=== PATIENT | female | born 1930 | race Caucasian/White ===

== ENCOUNTER 2017-12-26 16:05 | Inpatient (IN) | payer MEDICARE, OTHER, MEDICAID ==
--- NOTE | 2017-12-26 17:12 | RAD ---
FRONTAL RADIOGRAPH CHEST PORTABLE UPRIGHT 12/26/17 COMPARISON: 04/04/17 HISTORY: Cough, pneumonia, confusion, diaphoresis. FINDINGS: Since the 04/04/17 examination, there has been development of pulmonary vascular prominence and linear increased interstitial density bilaterally. Heart and mediastinal contours are stable. No pneumothor ax is seen. No large volume pleural effusion. Small volume pleural fluid cannot be excluded. IMPRESSION: Pulmonary vascular congestion and interstitial prominence suggests possible interstitial edema. No fo marilou consolidation. Followup PA and lateral imaging of the chest following treatment advised. POS: CHINYERE
[2017-12-26 17:33] LABS: #Eosinphils 0.2 thou/uL (0.0-0.7); #Lymphocytes 3.4 thou/uL (1.20-3.40); #Monocytes 0.4 thou/uL (0.11-0.59); %Basophils 0.3 % (0.0-1.0); %Eosinophils 1.2 % (0.0-10.0); %Lymphocytes 21.2 % (21.0-51.0); %Monocytes 2.7 % (0.0-10.0); %Neutrophils 74.7 % (42.0-75.0); Hemoglobin 13.7 g/dL (12.0-16.0); Mean Corpuscular HGB CONC 31.7 g/dL (32.0-36.0); Mean Corpuscular Hemoglobin 32.2 pg (27.0-31.0); Mean Platelet Volume 7.5 fL (7.4-10.4); Platelet Count 265 thou/uL (130-400); RBC Distribution Width 13.1 % (11.5-14.5); Red Blood Cell (RBC) Count 4.25 mill/uL (4.20-5.40)
[2017-12-26 17:56] LABS: ALT (SGPT) 22 U/L (8-55); AST (SGOT) 21 U/L (5-34); Alkaline Phosphatase 87 U/L (40-150); Anion Gap 19 mmol/L (10-20); BUN (Urea Nitrogen) 26 mg/dL (9.8-20.1); Bilirubin, Total 0.3 mg/dL (0.2-1.2); CK (CPK) 156 U/L (29-168); Calc. Creatinine Clearance 0 mL/min (70-130); Calcium 8.5 mg/dL (7.8-10.44); Carbon Dioxide 19 mmol/L (23-31); Chloride 102 mmol/L (98-107); Estimated GFR-MDRD 49; Globulin 4.3 g/dL (2.4-3.5); Glucose 267 mg/dL (83-110); Lipase 30 U/L (8-78); Potassium 4.7 mmol/L (3.5-5.1); Protein, Total 7.3 g/dL (6.0-8.3); Sodium 135 mmol/L (136-145)
[2017-12-26 18:03] LABS: CKMB 5.5 ng/mL (0-6.6); Troponin I 0.022 ng/mL (< 0.028)
[2017-12-26] MEDS ORDERED: Piperacillin/Tazobactam 4.5 GM in Sodium Chloride 0.9% 100 ML IVPB SCH (19:15)
[2017-12-26] MEDS ORDERED: Vancomycin HCl 1.5 GM in Sodium Chloride 0.9% 250 ML 300 ML IVPB SCH (19:15)
[2017-12-26 23:00] VITALS: BMI 31.0
[2017-12-27] MEDS ORDERED: Bisacodyl 5 MG TAB PO PRN (00:35)
[2017-12-27] MEDS ORDERED: Ondansetron HCl/PF 4 MG/2 ML Vial IVP PRN (00:35)
[2017-12-27] MEDS ORDERED: Acetaminophen 325 MG TAB PO PRN ×2 (00:39→00:59)
[2017-12-27] MEDS ORDERED: Nitroglycerin 0.4 MG TAB (25 Tab Bottle) SL SCH (00:45)
[2017-12-27] MEDS ORDERED: INSULIN GLARGINE SC SCH (00:45)
--- NOTE | 2017-12-27 00:54 | PDOC.EVN ---
Event Note - Event Note Event Note: H&P dictation [id number]
[2017-12-27] MEDS: Sodium Chloride 0.9% 1,000 ML IV SCH ×2 (01:27→15:22)
[2017-12-27] MEDS ORDERED: guaiFENesin 200 MG TAB PO SCH (01:30)
[2017-12-27 01:36] LABS: Troponin I 0.033 ng/mL (< 0.028)
--- NOTE | 2017-12-27 04:26 | HP ---
PRIMARY CARE PHYSICIAN: Stanley Carrasco M.D. CHIEF COMPLAINT: Cough with fever and altered mental status at the patient's home facility. HISTORY OF PRESENT ILLNESS: An 87-year-old female with a known history of dementia who presented with a chief complaint of cough, fever, and altered mental status and was sent in by her residential nursing facility. At the time of my evaluation, the patient is unfortunately a very poor historian that oriented only to self. She has no new complaints. Denies any active cough, shortness of breath, chest pain, dyspnea with exertion, or difficulty breathing. There is unfortunately no family or caregivers available to describe how far off baseline mentation the patient is currently. Per ER documentation, it appears that the patient also had some initial hypoxia in the emergency department which is currently resolved at the time of my evaluation. She was also noted to have new-onset atrial fibrillation with RVR at that point in time as well. REVIEW OF SYSTEMS: As per HPI. Constitutional: Patient is a poor historian as noted above, so the answers to this review of systems may not necessarily be accurate. Constitutional: No significant weight change, no fevers, no chills. HEENT: No any headaches, lightheadedness or dizziness. Cardiovascular: No chest pain or chest pressure. No sensation of palpitations or left-sided numbness or tingling. Respiratory: No difficulty breathing, no cough, no issues with congestion. Gastrointestinal: Denies any nausea, vomiting, abdominal pain. Denies any diarrhea or constipation. Genitourinary: Denies any dysuria. Musculoskeletal: Denies any myalgias or arthralgias. Remainder of review of systems, otherwise negative, but please note limitations to the accuracy of this review of systems as described above. PAST MEDICAL HISTORY: As per HPI includes the following as derived from patient 's current medical record, as the patient herself is unable to provide any medical history. 1. Type 2 diabetes. 2. Degenerative joint disease. 3. Alzheimer dementia. 4. Osteoporosis. 5. Coronary artery disease. 6. Hyperlipidemia. 7. Gastroesophageal reflux disease. 8. Morbid obesity. 9. Status post cholecystectomy. 10. Status post hernia repair. 11. Status post hysterectomy. HOME MEDICATIONS: Per the patient EMR list. The patient appears to be taking the following: Memantine 10 mg p.o. daily; Levaquin 500 mg p.o. daily; levothyroxine 25 mcg p.o. daily; ipratropium and albuterol 2 to 3 mL nebs q.i.d. ; magnesium hydroxide, aluminum hydroxide, simethicone 5 mg p.o. daily; insulin lispro sliding scale; econazole nitrate 1 application topical daily; acetaminophen 650 mg p.o. q.4 hours p.r.n.; prednisone 10 mg p.o. daily; simvastatin 10 mg p.o. at bedtime; Detrol 4 mg sublingual q.8 hours p.r.n.; Nitrostat 0.4 mg sublingual every 5 minutes p.r.n.; loperamide 2 mg p.o. as directed p.r.n.; donepezil 10 mg p.o. at bedtime; duloxetine 90 mg p.o. daily; methotrexate sodium 5 mg p.o. every 7 days; ascorbic acid 500 mg p.o. b.i.d.; multivitamin 1 tab each p.o. daily; ferrous sulfate 325 mg p.o. daily; aspirin 81 mg p.o. daily; potassium chloride 20 mEq p.o. daily; 100 mg p.o. b.i.d. ; cholecalciferol 6000 units p.o. daily; polyethylene glycol 3350 of 17 grams p.o. daily; furosemide 60 mg p.o. daily; vitamin A, C, zinc, sodium, selenate, copper 1 tab p.o. daily; insulin glargine or Lantus 65 units at bedtime and 70 units q.a.m.; guaifenesin 400 mg p.o. q.6 hours. ALLERGIES: CEPHALEXIN, unknown reaction; METFORMIN, unknown reaction. FAMILY HISTORY: Patient is unable to provide family history, but from prior records, it does not appear to have a family history of coronary artery disease , stroke, cancer, or recurrent pneumonia. SOCIAL HISTORY: Patient is a prison resident. Patient has longstanding DNR paperwork, which has been confirmed for the patient, as she is unable to make her own medical decisions at this point in time. PHYSICAL EXAMINATION: GENERAL: The patient is awake, conversant, oriented only to self. No acute distress, lying in the hospital bed. HEENT: Normocephalic, atraumatic. Equal ocular motions are intact. No posterior oropharyngeal erythema or exudate. CARDIOVASCULAR: S1, S2. No murmurs, rubs, or gallops. Pulses 2+ bilateral upper extremities, no pitting pedal edema. RESPIRATORY: Limited anterior examination. Reasonable air movement. No dyspnea with conversation. No wheezes, rales, or rhonchi, otherwise clear to auscultation bilaterally. ABDOMEN: Positive bowel sounds, obese, soft, nontender to palpation. MUSCULOSKELETAL: Able to move all 4 extremities independently. LABORATORY DATA AND IMAGING: WBC 16.3, hemoglobin 13.7, hematocrit 43.1, platelets 265. Sodium 135, potassium 4.7, chloride 102, bicarb 19, BUN 26, creatinine 1.06, glucose 267. Lactic acid 1.6, calcium 8.5, total bilirubin 0.3 , AST 21, ALT 22, alkaline phosphatase 87. Creatine kinase 156, troponin 0.022. BNP natriuretic peptide 110.6, albumin 3.0, total protein 7.3, lipase is 30. On 12/26/2017, chest x-ray impression "pulmonary vascular congestion and interstitial prominence suggest possible interstitial edema. No focal consolidation. Follow up PA and lateral imaging of the chest following treatment advised." ASSESSMENT AND PLAN: An 87-year-old female with dementia who was initially brought in for chief complaint of fever, cough, and altered mental status. 1. Patient appears to have been treated on an outpatient basis with a Z-CHLOE. She has been placed on Levaquin in the emergency department and has no active issues with cough or fever at this point in time, we will continue with this regimen for concern of possible atypical pneumonia, given the patient's leukocytosis as well and no other evidence of focality for infection. Check urine Streptococcal antigen and Legionella antigen. A sputum culture if possible. 2. Atrial fibrillation. Patient is currently self-rate controlled. We will closely continue to monitor on telemetry. Patient is unfortunately currently a high fall risk. She has already been taking aspirin on an outpatient basis, could consider further anticoagulation if the patient's fall risk improves, we will consult physical therapy. Echocardiogram and check a TSH. 3. History of coronary artery disease, currently appears to be stable. Monitor the patient on telemetry. 4. Leukocytosis, suspect secondary to potential infection as noted above. I have repeat CBC in the morning. Empiric antibiotics as above. 5. Hypothyroidism. Continue patient on her Synthroid. TSH as noted above. 6. Insulin-dependent diabetes. Continue the patient on her home regimen. Patient will need a diabetic diet. DIET: Diabetic as tolerated. ACTIVITY: Physical therapy consultation out of bed as tolerated. Deep venous thrombosis prophylaxis: Enoxaparin. Admit to telemetry. DNR. CHEMA
[2017-12-27 05:18] LABS: #Basophils 0.1 thou/uL (0.0-0.2); #Eosinphils 0.5 thou/uL (0.0-0.7); #Lymphocytes 4.9 thou/uL (1.20-3.40); #Monocytes 0.6 thou/uL (0.11-0.59); #Neutrophils 8.4 thou/uL (1.40-6.50); %Basophils 0.4 % (0.0-1.0); %Eosinophils 3.5 % (0.0-10.0); %Lymphocytes 33.7 % (21.0-51.0); %Monocytes 4.1 % (0.0-10.0); %Neutrophils 58.3 % (42.0-75.0); Hemoglobin 12.4 g/dL (12.0-16.0); Mean Corpuscular HGB CONC 31.3 g/dL (32.0-36.0); Mean Corpuscular Hemoglobin 31.5 pg (27.0-31.0); Mean Platelet Volume 7.1 fL (7.4-10.4); Platelet Count 232 thou/uL (130-400); RBC Distribution Width 12.9 % (11.5-14.5); Red Blood Cell (RBC) Count 3.92 mill/uL (4.20-5.40); White Blood Cell (WBC) Count 14.4 thou/uL (4.8-10.8)
[2017-12-27] MEDS: guaiFENesin 200 MG TAB PO SCH ×3 (05:22→17:38)
[2017-12-27 05:31] LABS: Anion Gap 11 mmol/L (10-20); BUN (Urea Nitrogen) 22 mg/dL (9.8-20.1); Calc. Creatinine Clearance 60 mL/min (70-130); Calcium 8.4 mg/dL (7.8-10.44); Carbon Dioxide 25 mmol/L (23-31); Chloride 108 mmol/L (98-107); Estimated GFR-MDRD 61; Potassium 3.9 mmol/L (3.5-5.1); Sodium 140 mmol/L (136-145)
[2017-12-27 05:35] LABS: Glucose 57 mg/dL (83-110)
[2017-12-27 05:36] LABS: Hemoglobin A1c 6.6 % (4.0-6.0)
[2017-12-27 07:25] LABS: Legionella Urinary Ag Negative (Negative); Strep pneumo Urine Ag NEGATIVE (NEGATIVE)
[2017-12-27] MEDS ORDERED: Insulin Detemir 100 UNITS/ML 70 UNITS in Pre-Filled Syringe 1 EACH SC SCH (08:00)
[2017-12-27] MEDS ORDERED: INSULIN GLARGINE 70 UNIT SC SCH (09:00)
[2017-12-27] MEDS ORDERED: ZINC PO SCH (09:00)
[2017-12-27] MEDS ORDERED: COPPER PO SCH (09:00)
[2017-12-27] MEDS ORDERED: Prevnar 13-Val Conj/PF 0.5 ML SYRINGE IM ONE (09:00)
[2017-12-27] MEDS ORDERED: [UNRECOGNIZED DRUG - OTHER] PO SCH (09:00)
[2017-12-27] MEDS ORDERED: NIACINAMIDE 100 MG PO SCH (09:00)
[2017-12-27] MEDS ORDERED: ECONAZOLE NITRATE TOP SCH ×2 (09:00)
[2017-12-27] MEDS ORDERED: Methotrexate Sodium 2.5 MG TAB PO SCH (09:00)
[2017-12-27] MEDS: Ascorbic Acid 500 mg Chewable Tablet PO SCH ×2 (09:02→22:23)
[2017-12-27] MEDS: Multivit, Therapeutic 1 TAB PO SCH (09:02)
[2017-12-27] MEDS: Ferrous Sulfate 325 MG TAB PO SCH (09:02)
[2017-12-27] MEDS: Furosemide 40 MG TAB PO SCH (09:02)
[2017-12-27] MEDS: Levothyroxine Sodium 25 MCG TAB PO SCH (09:02)
[2017-12-27] MEDS: DULoxetine 60 MG CAP PO SCH (09:02)
[2017-12-27] MEDS: Docusate 100 MG CAP PO SCH ×2 (09:02→22:24)
[2017-12-27] MEDS: predniSONE 20 MG TAB PO SCH (09:02)
[2017-12-27] MEDS: Mag-Al Plus 1200 MG/1200 MG/120 MG/30 ML UDCUP PO SCH (09:03)
[2017-12-27] MEDS: Enoxaparin Sodium 40 MG/0.4 ML SYRINGE SC SCH (09:04)
[2017-12-27] MEDS: Pantoprazole 40 MG VIAL IVP SCH (09:55)
[2017-12-27 09:59] LABS: Troponin I 0.018 ng/mL (< 0.028)
[2017-12-27] MEDS ORDERED: Dextrose 50% Abboject 50 ML SYRINGE SLOW IVP PRN (10:18)
[2017-12-27] MEDS ORDERED: Dextrose 5% in Water 1,000 ML IV PRN (10:18)
[2017-12-27 15:13] LABS: Bilirubin Negative (Negative); Blood, Urine Moderate (Negative); Clarity TURBID (Clear); Glucose, Urine (Dipstick) Negative (Negative); Leukocyte Large (Negative); Nitrite Positive (Negative); Protein, Urine (Dipstick) 30 mg/dL (Neg-Trace); Specific Gravity, Urine 1.022 (1.002-1.036); Urobilinogen 0.2 mg/dL (0.2-1.0)
[2017-12-27 15:16] LABS: Squamous Epithelial 0-3 HPF (0-3)
[2017-12-27 15:26] LABS: Pathc Cast-AUWi Flag 241.58 (0-2.49); Yeast-AUWi Flag 345.7 (0-25.0)
[2017-12-27 15:46] LABS: Hyaline Casts/LPF NONE SEEN LPF (0-3 Hyaline); Other Casts/LPF None Seen LPF (0-3 Hyaline)
[2017-12-27 15:47] LABS: Bacteria/HPF 1+ HPF (None Seen); Yeast-All Forms None Seen HPF (None Seen)
[2017-12-27] MEDS ORDERED: Insulin Detemir 100 UNITS/ML 65 UNITS in Pre-Filled Syringe 1 EACH SC SCH (16:30)
[2017-12-27] MEDS ORDERED: Insulin Detemir 100 UNITS/ML 10 UNITS in Pre-Filled Syringe SC SCH (17:00)
[2017-12-27] MEDS ORDERED: predniSONE 20 MG TAB PO SCH (17:00)
[2017-12-27] MEDS: Insulin Regular 300 UNITS/3 ML VIAL SC PRN ×2 (17:46→22:37)
[2017-12-27] MEDS: Simvastatin 20 MG TAB PO SCH (22:23)
[2017-12-27] MEDS: Doxycycline 100 MG CAP PO SCH (22:24)
[2017-12-27] MEDS: Donepezil HCl 10 MG TAB PO SCH (22:24)
[2017-12-28] MEDS: guaiFENesin 200 MG TAB PO SCH ×4 (01:18→18:09)
[2017-12-28 05:49] LABS: #Eosinphils 0.1 thou/uL (0.0-0.7); #Lymphocytes 4.1 thou/uL (1.20-3.40); #Monocytes 0.5 thou/uL (0.11-0.59); #Neutrophils 5.7 thou/uL (1.40-6.50); %Basophils 0.4 % (0.0-1.0); %Eosinophils 1.2 % (0.0-10.0); %Lymphocytes 39.3 % (21.0-51.0); %Monocytes 4.7 % (0.0-10.0); %Neutrophils 54.4 % (42.0-75.0); Hemoglobin 11.9 g/dL (12.0-16.0); Mean Corpuscular HGB CONC 31.6 g/dL (32.0-36.0); Mean Corpuscular Hemoglobin 31.5 pg (27.0-31.0); Mean Corpuscular Volume 99.8 fl (81.0-99.0); Mean Platelet Volume 7.5 fL (7.4-10.4); Platelet Count 236 thou/uL (130-400); RBC Distribution Width 12.8 % (11.5-14.5); Red Blood Cell (RBC) Count 3.77 mill/uL (4.20-5.40); White Blood Cell (WBC) Count 10.5 thou/uL (4.8-10.8)
[2017-12-28 06:01] LABS: Anion Gap 13 mmol/L (10-20); BUN (Urea Nitrogen) 19 mg/dL (9.8-20.1); Calc. Creatinine Clearance 66 mL/min (70-130); Calcium 8.4 mg/dL (7.8-10.44); Carbon Dioxide 22 mmol/L (23-31); Chloride 104 mmol/L (98-107); Estimated GFR-MDRD 65; Glucose 152 mg/dL (83-110); Magnesium 1.8 mg/dL (1.6-2.6); Potassium 4.2 mmol/L (3.5-5.1); Sodium 135 mmol/L (136-145)
[2017-12-28] MEDS ORDERED: predniSONE 20 MG TAB PO SCH (08:00)
[2017-12-28] MEDS: Furosemide 40 MG TAB PO SCH (09:57)
[2017-12-28] MEDS: Multivit, Therapeutic 1 TAB PO SCH (09:57)
[2017-12-28] MEDS: Levothyroxine Sodium 25 MCG TAB PO SCH (09:57)
[2017-12-28] MEDS: Docusate 100 MG CAP PO SCH ×2 (09:57→20:30)
[2017-12-28] MEDS: Ferrous Sulfate 325 MG TAB PO SCH (09:57)
[2017-12-28] MEDS: Mag-Al Plus 1200 MG/1200 MG/120 MG/30 ML UDCUP PO SCH (09:58)
[2017-12-28] MEDS: Enoxaparin Sodium 40 MG/0.4 ML SYRINGE SC SCH (09:58)
[2017-12-28] MEDS: Ascorbic Acid 500 mg Chewable Tablet PO SCH ×2 (09:58→20:30)
[2017-12-28] MEDS ORDERED: DULoxetine 60 MG CAP PO SCH (10:15)
[2017-12-28] MEDS ORDERED: DULoxetine 30 MG CAP PO SCH (10:15)
[2017-12-28] MEDS: Doxycycline 100 MG CAP PO SCH ×2 (10:20→20:29)
[2017-12-28] MEDS ORDERED: hydrALAZINE 20 MG/ML VIAL SLOW IVP PRN (10:21)
[2017-12-28] MEDS: Insulin Detemir 100 UNITS/ML 10 UNITS in Pre-Filled Syringe SC SCH (10:47)
[2017-12-28] MEDS: DULoxetine 60 MG CAP PO SCH (11:19)
[2017-12-28] MEDS: predniSONE 20 MG TAB PO SCH (11:19)
[2017-12-28] MEDS: Pantoprazole 40 MG VIAL IVP SCH (11:19)
--- NOTE | 2017-12-28 17:08 | CON ---
DATE OF CONSULTATION: 12/28/2017 REASON FOR CONSULTATION: Atrial fibrillation and AV block. HISTORY OF PRESENT ILLNESS: Mr. Arenas is a very pleasant 87-year-old white female who comes to the hospital for cough, fevers and altered mentation. She has history of dementia and was sent from the prison. She was diagnosed with pneumonia. She was in atrial fibrillation and RVR and was sta rted on diltiazem drip and was admitted to the hospital. She quickly converted back into sinus rhyth m and has remained in sinus rhythm ever since. She has been in sinus rhythm with long first degree A V block, at night she went into second degree AV block, Mobitz type 1 and there was a 1.7-second epis ode, not really a pause. Cardiology is being consulted for all this. On my evaluation, Ms. Arenas is pleasantly demented, not able to provide any significant history, but she is very pleasant. PAST MEDICAL HISTORY: 1. Type 2 diabetes. 2. Degenerative joint disease. 3. Alzheimer dementia. 4. Osteoporosis. 5. History of coronary artery disease in the past. 6. Hyperlipidemia. 7. Gastroesophageal reflux disease. 8. Morbid obesity. PAST SURGICAL HISTORY: 1. Cholecystectomy. 2. Hernia repair. 3. Hysterectomy. OUTPATIENT MEDICATIONS: Reviewed. Please see note from Dr. Serra, they are unchanged. ALLERGIES: CEPHALEXIN, METFORMIN. FAMILY HISTORY: Noncontributory by chart review. SOCIAL HISTORY: Lives in prison. No alcohol, tobacco or drugs. Longstanding DNR/DNI confirme d in the chart with paper. REVIEW OF SYSTEMS: A 12 point review of systems was done and is all negative unless stated in the hi story of present illness; however, this is probably not sensitive due to patient's dementia. PHYSICAL EXAMINATION: VITAL SIGNS: Temperature 97.5, pulse 69, respiration rate 18, satting 97% on room air, blood pressur e 121/60. GENERAL: Awake, alert, oriented x3, in no distress. HEENT: Normocephalic, atraumatic. NECK: Supple. LUNGS: Clear. CARDIOVASCULAR: S1, S2, no S3, S4. There is a grade 2/6 systolic murmur in the right upper sternal border. ABDOMEN: Soft, positive bowel sounds. EXTREMITIES: Trace edema. SKIN: Warm and dry. LABORATORY WORK: Reviewed. White count of 16 on admission down to 10, hemoglobin 11.9, hematocrit 3 7, platelet count of 236. Chemistries were reviewed. Troponins have been negative x2. BNP was 110. UA had positive nitrites, large leukocyte esterase, 7-10 rbc's. Serology was negative for Strep pn eumo and legionella pneumo antigen in the urine. Urine cultures positive for gram negative rods so far. Blood cultures are negative. Telemetry was reviewed. She is in sinus rhythm currently with a first degree AV block. She had some Mobitz type 1 block overnight, has not had any sinus pauses. She was in atrial fibrillation RVR ear ly on her admission. Echocardiogram was reviewed, normal LV function, EF of 50-55%, grade I diastolic dysfunction and valv ular regurgitation. Chest x-ray was reviewed. ASSESSMENT AND PLAN: 1. Altered mentation. 2. Urinary tract infection. 3. Atrial fibrillation with rapid ventricular response. 4. First degree atrioventricular block. 5. Dementia. PLAN: 1. No major bradyarrhythmias to suggest need for pacemaker. Continue telemetry monitoring for now. 2. For her atrial fibrillation RVR, she is high risk for falls, so an aspirin alone for stroke proph ylaxis. Most likely this was worsened by her urinary tract infection. Currently, we would only herlinda t with a low dose beta irina if we feel her heart rate is low, I would hold for now as there is con cern for possible bradycardia. 3. Urinary tract infection. Antibiotics per primary team. 4. DNR/DNI. Thank you for letting us to participate in the care of your patient. We will follow.
--- NOTE | 2017-12-28 18:31 | PDOC.PN ---
- Subjective Encounter Start Date: 12/28/17 Encounter Start Time: 10:00 Patient seen and examined for multiple medical issues.. No new complaints. No overnight events - Objective Resuscitation Status: Resuscitation Status DNR:Do Not Resuscitate MAR Reviewed: Yes Vital Signs & Weight: Vital Signs (12 hours) Temp Pulse Resp BP Pulse Ox 12/28/17 16:35 97.2 F L 71 18 124/61 94 L 12/28/17 16:07 77 18 95 12/28/17 13:20 97.5 F L 69 18 121/60 97 12/28/17 12:11 72 18 94 L 12/28/17 07:37 88 20 94 L 12/28/17 07:20 97.4 F L 72 18 135/65 95 Weight Weight 197 lb 12.8 oz I&O: 12/27/17 12/28/17 12/29/17 06:59 06:59 06:59 Intake Total 597 2120 Balance 597 2120 Result Diagrams: 12/28/17 05:21 12/28/17 05:21 Additional Labs: Accuchecks 12/28/17 12/28/17 12/28/17 16:27 11:22 05:26 POC Glucose 272 H 131 H 144 H 12/27/17 21:02 POC Glucose 355 H EKG Reviewed by me: Yes (Tele 2.1 sec pause, SR) Phys Exam - Physical Examination Constitutional: NAD Neck: no JVD Respiratory: no wheezing, no rhonchi Bibasilar rales Cardiovascular: no rub, irregular no heaves/pulsations Gastrointestinal: soft, non-tender, no distention, positive bowel sounds Neuro/Psych - Cannot assess due to current mentation. Dx/Plan - Plan DVT proph w/lovenox, DVT proph w/SCDs IMPRESSION: 1. Toxic Metabolic Encephalopathy due to UTI 2. Afib with RVR 3. Acute on Chronic diastolic heart failure 4. 2.1 sec Sinus pause 5. DM2 6. HTN PLAN: * Cont Atbx * Avoid betablockers * ASA for stroke prophylaxis - Not a candidate for anticoag * Cont sliding scale * Cont Levemir at 10 units with sliding scale * Cont Tele monitoring * Cont current med as below Review of Systems - Review of Systems Other: Cannot be obtained due to current mentation. - Medications/Allergies Allergies/Adverse Reactions: Allergies Allergy/AdvReac Type Severity Reaction Status Date / Time cephalexin [From Keflex] Allergy Verified 01/26/17 22:45 metformin Allergy Verified 01/26/17 22:45 Medications: Current Medications Acetaminophen (Tylenol) 650 mg PO Q4HR PRN PRN Reason: pain, fever Acetaminophen (Tylenol) 325 mg PO Q4H PRN PRN Reason: Headache/Fever or Pain Al Hydroxide/Mg Hydroxide (Maalox Plus) 5 ml PO DAILY [facility] Last Admin: 12/28/17 09:58 Dose: 5 ml Albuterol/Ipratropium (Duoneb) 3 ml NEB QID-RT [facility] Last Admin: 12/28/17 16:07 Dose: 3 ml Ascorbic Acid (Vitamin C) 500 mg PO BID [facility] Last Admin: 12/28/17 09:58 Dose: 500 mg Aspirin (Aspirin Chewable) 81 mg PO DAILY [facility] Last Admin: 12/28/17 09:57 Dose: 81 mg Bisacodyl (Dulcolax) 10 mg PO DAILYPRN PRN PRN Reason: Constipation Cholecalciferol (Vitamin D3) 6,000 units PO DAILY [facility] Last Admin: 12/28/17 09:54 Dose: 6,000 units Dextrose/Water (Dextrose 50%) 25 gm SLOW IVP PRN PRN PRN Reason: Hypoglycemia Docusate Sodium (Colace) 100 mg PO BID [facility] Last Admin: 12/28/17 09:57 Dose: 100 mg Donepezil HCl (Aricept) 10 mg PO HS [facility] Last Admin: 12/27/17 22:24 Dose: 10 mg Doxycycline Hyclate (Vibramycin) 100 mg PO BID [facility] Last Admin: 12/28/17 10:20 Dose: 100 mg Duloxetine HCl (Cymbalta) 30 mg PO DAILY [facility] Duloxetine HCl (Cymbalta) 60 mg PO DAILY [facility] Enoxaparin Sodium (Lovenox) 40 mg SC 0900 [facility] Last Admin: 12/28/17 09:58 Dose: 40 mg Ferrous Sulfate (Feosol) 325 mg PO QAM-WM [facility] Last Admin: 12/28/17 09:57 Dose: 325 mg Furosemide (Lasix) 60 mg PO DAILY [facility] Last Admin: 12/28/17 09:57 Dose: 60 mg Glucagon (Glucagon) 1 mg IM PRN PRN PRN Reason: Hypoglycemia Guaifenesin (Organ-I Nr) 400 mg PO Q6HR [facility] Last Admin: 12/28/17 18:09 Dose: 400 mg Hydralazine HCl (Apresoline) 5 mg SLOW IVP Q4H PRN PRN Reason: SBP Greater Than 180 Levofloxacin 500 mg/ Device 100 mls @ 100 mls/hr IVPB 1800 [facility] Last Admin: 12/28/17 18:09 Dose: 100 mls Dextrose/Water (D5w) 1,000 mls @ 0 mls/hr IV .Q0M PRN; As Directed PRN Reason: Hypoglycemia Insulin Detemir 10 units/ (Miscellaneous Medication) 0.1 mls @ 0 mls/hr SC QAM [facility] Last Admin: 12/28/17 10:47 Dose: 0.1 mls Insulin Human Regular (Humulin R) 0 units SC .MILD SLIDING SCALE PRN PRN Reason: Mild Correctional Scale Last Admin: 12/27/17 17:46 Dose: 5 unit Insulin Human Regular (Humulin R) 0 units SC .BEDTIME SLIDING SC PRN PRN Reason: Bedtime Correctional Scale Last Admin: 12/27/17 22:37 Dose: 5 unit Levothyroxine Sodium (Synthroid) 25 mcg PO DAILY [facility] Last Admin: 12/28/17 09:57 Dose: 25 mcg Memantine (Namenda) 10 mg PO BID [facility] Last Admin: 12/28/17 09:57 Dose: 10 mg Methotrexate Sodium (Methotrexate Sodium) 5 mg PO Mo [facility] Multivitamins (Theragran) 1 tab PO DAILY [facility] Last Admin: 12/28/17 09:57 Dose: 1 tab Nitroglycerin (Nitrostat) 0.4 mg SL Q5MIN [facility] Ondansetron HCl (Zofran) 4 mg IVP Q6H PRN PRN Reason: Nausea/Vomiting Pantoprazole Sodium (Protonix) 40 mg PO DAILY [facility] Last Admin: 12/28/17 10:10 Dose: 40 mg Prednisone (Prednisone) 20 mg PO QAM-[facility] Last Admin: 12/28/17 09:54 Dose: 20 mg Simvastatin (Zocor) 10 mg PO HS [facility] Last Admin: 12/27/17 22:23 Dose: 10 mg Sodium Chloride (Flush - Normal Saline) 10 ml IVF Q12HR [facility] Last Admin: 12/28/17 10:10 Dose: 10 ml Sodium Chloride (Flush - Normal Saline) 10 ml IVF PRN PRN PRN Reason: Saline Flush
[2017-12-28] MEDS: Donepezil HCl 10 MG TAB PO SCH (20:29)
[2017-12-28] MEDS: Simvastatin 20 MG TAB PO SCH (20:30)
[2017-12-28] MEDS: Insulin Regular 300 UNITS/3 ML VIAL SC PRN ×3 (21:15→23:50)
[2017-12-29] MEDS: guaiFENesin 200 MG TAB PO SCH ×4 (01:22→17:33)
[2017-12-29 06:23] LABS: #Basophils 0.1 thou/uL (0.0-0.2); #Eosinphils 0.1 thou/uL (0.0-0.7); #Lymphocytes 4.2 thou/uL (1.20-3.40); #Monocytes 0.5 thou/uL (0.11-0.59); #Neutrophils 7.3 thou/uL (1.40-6.50); %Basophils 0.5 % (0.0-1.0); %Eosinophils 0.5 % (0.0-10.0); %Lymphocytes 34.9 % (21.0-51.0); %Monocytes 3.7 % (0.0-10.0); %Neutrophils 60.4 % (42.0-75.0); Hemoglobin 11.9 g/dL (12.0-16.0); Mean Corpuscular HGB CONC 32.1 g/dL (32.0-36.0); Mean Corpuscular Volume 99.5 fl (81.0-99.0); Mean Platelet Volume 7.3 fL (7.4-10.4); Platelet Count 256 thou/uL (130-400); RBC Distribution Width 12.9 % (11.5-14.5); Red Blood Cell (RBC) Count 3.73 mill/uL (4.20-5.40); White Blood Cell (WBC) Count 12.1 thou/uL (4.8-10.8)
[2017-12-29] MEDS ORDERED: ISOVUE-370 76%-LOCM 1 ML ONE (06:31)
[2017-12-29 06:38] LABS: Anion Gap 7 mmol/L (10-20); BUN (Urea Nitrogen) 21 mg/dL (9.8-20.1); Calc. Creatinine Clearance 67 mL/min (70-130); Calcium 8.6 mg/dL (7.8-10.44); Carbon Dioxide 28 mmol/L (23-31); Chloride 102 mmol/L (98-107); Estimated GFR-MDRD 66; Glucose 112 mg/dL (83-110); Magnesium 1.6 mg/dL (1.6-2.6); Sodium 133 mmol/L (136-145)
[2017-12-29] MEDS: predniSONE 20 MG TAB PO SCH (08:32)
[2017-12-29] MEDS: Ferrous Sulfate 325 MG TAB PO SCH (08:32)
[2017-12-29] MEDS: Ascorbic Acid 500 mg Chewable Tablet PO SCH ×2 (08:33→20:36)
[2017-12-29] MEDS: Docusate 100 MG CAP PO SCH ×2 (08:35→20:36)
[2017-12-29] MEDS: DULoxetine 30 MG CAP PO SCH (08:36)
[2017-12-29] MEDS: Enoxaparin Sodium 40 MG/0.4 ML SYRINGE SC SCH (08:36)
[2017-12-29] MEDS: DULoxetine 60 MG CAP PO SCH (08:36)
[2017-12-29] MEDS: Furosemide 40 MG TAB PO SCH (08:37)
[2017-12-29] MEDS: Levothyroxine Sodium 25 MCG TAB PO SCH (08:38)
[2017-12-29] MEDS: Mag-Al Plus 1200 MG/1200 MG/120 MG/30 ML UDCUP PO SCH (08:39)
[2017-12-29] MEDS: Multivit, Therapeutic 1 TAB PO SCH (08:42)
[2017-12-29] MEDS: Insulin Detemir 100 UNITS/ML 10 UNITS in Pre-Filled Syringe SC SCH (09:06)
[2017-12-29] MEDS: Insulin Regular 300 UNITS/3 ML VIAL SC PRN ×2 (12:04→16:14)
--- NOTE | 2017-12-29 16:26 | PDOC.CTH ---
Cardiology Progress Note - Subjective No new issues. Remains very pleasant. - Objective Vital Signs Temp Pulse Resp BP Pulse Ox 12/29/17 15:55 97.8 F 88 16 115/76 95 12/29/17 15:03 78 18 95 12/29/17 12:07 98.7 F 88 18 147/67 H 95 12/29/17 10:52 80 18 95 12/29/17 08:13 81 18 94 L 12/29/17 07:25 97.2 F L 79 18 150/68 H 95 Weight 197 lb 12.8 oz 12/28/17 12/29/17 12/30/17 06:59 06:59 06:59 Intake Total 2119 Balance 2119 - Physical Examination General/Neuro: NAD Neck: no JVD present Lungs: CTA, unlabored respirations Heart: RRR Abdomen: NT/ND Extremities: + edema B (trace) - Telemetry Telemetry Rhythm: NSR - Labs Result Diagrams: 12/29/17 05:52 12/29/17 05:52 Troponin/CKMB CK-MB (CK-2) 5.5 ng/mL (0-6.6) 12/26/17 17:23 Troponin I 0.018 ng/mL (< 0.028) 12/27/17 09:02 - Assessment/Plan 1. Afib RVR, now in sinus 2. UTI 3. Dementia 4. Long first degree AV block. 5. 2.1 second pause at night. Asymptomatic. PLAN: - Continue to hold on all AV zena blocking agents for concern for bradycardia. - Aspirin alone for CVA prophylaxis due to high fall risk.
--- NOTE | 2017-12-29 17:42 | PDOC.PN ---
- Subjective Encounter Start Date: 12/29/17 Encounter Start Time: 11:00 Patient seen and examined for Encephalopathy/UTI. No new complaints. No overnight events - Objective Resuscitation Status: Resuscitation Status DNR:Do Not Resuscitate MAR Reviewed: Yes Vital Signs & Weight: Vital Signs (12 hours) Temp Pulse Resp BP Pulse Ox 12/29/17 15:55 97.8 F 88 16 115/76 95 12/29/17 15:03 78 18 95 12/29/17 12:07 98.7 F 88 18 147/67 H 95 12/29/17 10:52 80 18 95 12/29/17 08:13 81 18 94 L 12/29/17 07:25 97.2 F L 79 18 150/68 H 95 Weight Weight 197 lb 12.8 oz I&O: 12/28/17 12/29/17 12/30/17 06:59 06:59 06:59 Intake Total 2120 Balance 2120 Result Diagrams: 12/29/17 05:52 12/29/17 05:52 Additional Labs: Accuchecks 12/29/17 12/29/17 12/29/17 16:11 10:53 05:48 POC Glucose 321 H 239 H 109 12/29/17 12/28/17 12/28/17 01:23 23:15 21:11 POC Glucose 201 H 318 H 403 H EKG Reviewed by me: Yes (Tele - int AV block) Phys Exam - Physical Examination Constitutional: NAD Respiratory: no wheezing, no rhonchi Cardiovascular: no rub, irregular Gastrointestinal: soft, non-tender, positive bowel sounds Musculoskeletal: no edema Neurological: moves all 4 limbs Dx/Plan - Plan DVT proph w/SCDs IMPRESSION/PLAN: 1. Toxic Metabolic Encephalopathy due to Providencia UTI - Mentation improving - DC Levaquin (resistant) - Consult ID - Patient is allergic to Cephalosporins 2. Afib with RVR - Rate controlled - ASA for stroke prophylaxis 3. Acute on chronic diastolic heart failure - Cont Lasix at home dose 4. 2.1 sec Sinus pause/AV block - Will avoid AV zena agent - Cont Tele monitoring 5. DM2 - Cont sliding scale with Levemir at 10 units QAM 6. HTN - Cont to monitor 7. Obesity BMI 32.9 Review of Systems - Review of Systems Respiratory: negative: Cough, Dry, Shortness of Breath, Hemoptysis, SOB with Excertion, Pleuritic Pain, Sputum, Wheezing Cardiovascular: negative: chest pain, palpitations, orthopnea, paroxysmal nocturnal dyspnea, edema, light headedness, other - Medications/Allergies Allergies/Adverse Reactions: Allergies Allergy/AdvReac Type Severity Reaction Status Date / Time cephalexin [From Keflex] Allergy Verified 01/26/17 22:45 metformin Allergy Verified 01/26/17 22:45 Medications: Current Medications Acetaminophen (Tylenol) 650 mg PO Q4HR PRN PRN Reason: pain, fever Acetaminophen (Tylenol) 325 mg PO Q4H PRN PRN Reason: Headache/Fever or Pain Al Hydroxide/Mg Hydroxide (Maalox Plus) 5 ml PO DAILY [facility] Last Admin: 12/29/17 08:39 Dose: 5 ml Albuterol/Ipratropium (Duoneb) 3 ml NEB QID-RT [facility] Last Admin: 12/29/17 15:03 Dose: 3 ml Ascorbic Acid (Vitamin C) 500 mg PO BID [facility] Last Admin: 12/29/17 08:33 Dose: 500 mg Aspirin (Aspirin Chewable) 81 mg PO DAILY [facility] Last Admin: 12/29/17 08:34 Dose: 81 mg Bisacodyl (Dulcolax) 10 mg PO DAILYPRN PRN PRN Reason: Constipation Cholecalciferol (Vitamin D3) 6,000 units PO DAILY [facility] Last Admin: 12/29/17 08:34 Dose: 6,000 units Dextrose/Water (Dextrose 50%) 25 gm SLOW IVP PRN PRN PRN Reason: Hypoglycemia Docusate Sodium (Colace) 100 mg PO BID [facility] Last Admin: 12/29/17 08:35 Dose: 100 mg Donepezil HCl (Aricept) 10 mg PO HS [facility] Last Admin: 12/28/17 20:29 Dose: 10 mg Duloxetine HCl (Cymbalta) 30 mg PO DAILY [facility] Last Admin: 12/29/17 08:36 Dose: 30 mg Duloxetine HCl (Cymbalta) 60 mg PO DAILY [facility] Last Admin: 12/29/17 08:36 Dose: 60 mg Enoxaparin Sodium (Lovenox) 40 mg SC 0900 [facility] Last Admin: 12/29/17 08:36 Dose: 40 mg Ferrous Sulfate (Feosol) 325 mg PO QA-[facility] Last Admin: 12/29/17 08:32 Dose: 325 mg Furosemide (Lasix) 60 mg PO DAILY [facility] Last Admin: 12/29/17 08:37 Dose: 60 mg Glucagon (Glucagon) 1 mg IM PRN PRN PRN Reason: Hypoglycemia Guaifenesin (Organ-I Nr) 400 mg PO Q6HR [facility] Last Admin: 12/29/17 17:33 Dose: 400 mg Hydralazine HCl (Apresoline) 5 mg SLOW IVP Q4H PRN PRN Reason: SBP Greater Than 180 Dextrose/Water (D5w) 1,000 mls @ 0 mls/hr IV .Q0M PRN; As Directed PRN Reason: Hypoglycemia Insulin Detemir 10 units/ (Miscellaneous Medication) 0.1 mls @ 0 mls/hr [facility] Last Admin: 12/29/17 09:06 Dose: 0.1 mls Insulin Human Regular (Humulin R) 0 units SC .BEDTIME SLIDING SC PRN PRN Reason: Bedtime Correctional Scale Last Admin: 12/28/17 21:15 Dose: 5 unit Insulin Human Regular (Humulin R) 0 units SC .MODERATE SLIDING SC PRN; Protocol PRN Reason: MODERATE SLIDING SCALE Last Admin: 12/29/17 16:14 Dose: 8 unit Levofloxacin (Levaquin) 500 mg PO 1800 [facility] Last Admin: 12/29/17 17:33 Dose: 500 mg Levothyroxine Sodium (Synthroid) 25 mcg PO DAILY [facility] Last Admin: 12/29/17 08:38 Dose: 25 mcg Memantine (Namenda) 10 mg PO BID [facility] Last Admin: 12/29/17 08:41 Dose: 10 mg Methotrexate Sodium (Methotrexate Sodium) 5 mg PO Mo [facility] Multivitamins (Theragran) 1 tab PO DAILY [facility] Last Admin: 12/29/17 08:42 Dose: 1 tab Nitroglycerin (Nitrostat) 0.4 mg SL Q5MIN [facility] Ondansetron HCl (Zofran) 4 mg IVP Q6H PRN PRN Reason: Nausea/Vomiting Pantoprazole Sodium (Protonix) 40 mg PO DAILY [facility] Last Admin: 12/29/17 08:42 Dose: 40 mg Prednisone (Prednisone) 10 mg PO QAM-[facility] Last Admin: 12/29/17 08:32 Dose: 10 mg Simvastatin (Zocor) 10 mg PO [facility] Last Admin: 12/28/17 20:30 Dose: 10 mg Sodium Chloride (Flush - Normal Saline) 10 ml IVF Q12HR [facility] Last Admin: 12/29/17 08:43 Dose: 10 ml Sodium Chloride (Flush - Normal Saline) 10 ml IVF PRN PRN PRN Reason: Saline Flush
--- NOTE | 2017-12-29 19:29 | CON ---
DATE OF CONSULTATION: 12/29/2017 REASON FOR CONSULTATION: Cough, fever, and altered mental status. HISTORY OF PRESENT ILLNESS: An 87-year-old patient whom I had seen in 01/2017 when she presented with a history of chronic lymphocytic leukemia, type 2 diabetes mellitus, and pemphigus or bullous pemphigoid previously on chronic immunosuppressive treatment. She also has dementia. In January last year, I evaluated her for change in mental status and abnormal urinalysis with flank pain. She did have a CT scan which showed a nonobstructive right renal calcifications, but no other findings of significance. Urine culture demonstrated Proteus mirabilis with quite broad resistance profile. She was discharged with diagnosis of UTI with possible sepsis. Rectal bleeding which resolved, the family having declined endoscopy. Two months later, she was readmitted with chest pain and shortness of breath. She had a left lower lobe infiltrate and was started on IV antimicrobials with improvement. She was noted to have elevated WBC counts, which were ascribed to her CLL. This time, the jail stated that the patient had been on Levaquin prescribed by her personal physician for respiratory symptoms including cough, no fever had been documented. She had no complaints of diarrhea. No abdominal pain. No chest pain. At one point, it was decided to refer for admission. On arrival, the patient had an O2 sat 97% on room air. BP 145/104, pulse 93, respirations 22. She remained afebrile in the emergency room. The exam there showed clear breath sounds, although she was tachypneic. The abdomen did not appear tender. She is awake, but was disoriented. Initial lab reports included a white cell count of 16,000, hemoglobin 13, platelets 265 with a normal differential, neutrophil count of 12,000. The initial chemistry values with creatinine 0.87, bilirubin 0.3, AST 21, ALT 22, and alkaline phosphatase is 87. The albumin was 3.0, which is about the same as previously. Globulin was 4.3, which is a little bit higher than previously found values. Lipase was 30, urinalysis with greater than 50 or too numerous to count wbcs compared with previous pretty much all her past 3 visits where urinalysis was done demonstrated greater than 50 wbcs. Chest x-ray with pulmonary vascular congestion, interstitial prominence but no focal consolidation. Currently, Ms. Arenas is awake. She does not appear in distress. She was obviously disoriented and could not give me a reliable personal account. According to the nurse in the jail and here, there has been no reported aspiration events. No vomiting. No diarrhea. She continues to void spontaneously. PAST MEDICAL HISTORY: Include dementia, type 2 diabetes, diverticulosis, degenerative joint disease, bullous pemphigoid and lymphoproliferative disorder , possibly CLL. PAST SURGICAL HISTORY: Cholecystectomy, hysterectomy, and hernia repair. SOCIAL HISTORY: Resident of [facility]. Never a smoker, appears to have a DNR order. FAMILY HISTORY: Noncontributory. ALLERGIES: GLUCOPHAGE and KEFLEX with skin rash. CURRENT MEDICATIONS: Include Tylenol, Maalox, DuoNeb, vitamin C, aspirin, Dulcolax, dextrose, Colace, Aricept, Cymbalta, Lovenox, Feosol, Lasix, glucagon , insulin, levofloxacin, levothyroxine, methotrexate 5 mg p.o. scheduled, Protonix, and prednisone 10 mg daily. Microbiology with Providencia stuartii, which is resistant to quinolones and most other antibiotics except for cefepime , ceftazidime, ceftriaxone, piperacillin, tazobactam. Echocardiogram with EF 50%-55%, grade 3 diastolic dysfunction, moderate mitral regurgitation. ASSESSMENT: Dementia with type 2 diabetes, bullous pemphigoid in the past, in remission, chronic low dose steroids and methotrexate, cough and reported change in mental status. According to the nurse in the jail, no documented fever was found in the record. The patient's main reason for admission was the respiratory symptoms. This seems to replicate a similar situation that she had in 03/2017. The other concern is the abnormal urinalysis and the possible relationship to current symptomatology. It is conceivable that the respiratory symptoms are not related to a bacterial respiratory tract infection, rather could be a viral infectious process or thromboembolism for example. Opportunistic pathogens in view of the chronic immunosuppressive drugs are another consideration. She does not have active bullous pemphigoid lesions identified at this time and I believe tapering of the dose of those or immunosuppressive agents should be considered under supervision. At this point, we will order a CT angio to rule out PE and discontinue levofloxacin since the patient had been on levofloxacin for 7 days before she was admitted without any improvement in symptoms. Check respiratory virus PCR panel, check CMV DNA PCR, cryptococcus antigen, histoplasma antigen in urine and a Fungitell assay. Regarding the urinary findings, they may be innocent bystander or have a true relationship to the patient's symptoms, although that is less likely since we would have expected a fever documented in the jail. She has had [address] scans which did not show any obstructive findings, we may repeat the abdomen CT again to see if she has evidence of pyelonephritis this time depending on the findings obtained in the chest study. CHEMA
--- NOTE | 2017-12-29 20:17 | CT ---
CT PULMONARY ANGIO CHEST WITH CONTRAST: INDICATIONS: Hypoxia. Cough. Tachypnea. TECHNIQUE: Multiple axial tomograms obtained through the chest following pulmonary angio protocol with multiplan ar reconstruction and 3D post processing. FINDINGS: The pulmonary arteries are well opacified. There is no evidence of pulmonary embolus. Review of the lung greco reveal peripheral opacities in the mid and lower lungs, suggesting pleural- based atelectasis. This is more extensive in the lung bases posteriorly. There is a confluent infiltrate, peripherally, in the left upper lobe, along the fissure, and extendi ng to the pleural surface. While some of this may be atelectasis, I cannot exclude an inflammatory i nfiltrate. Also, there is a nodular infiltrative process in the right apex, with numerous small, nod ular opacities, measuring up to 1 cm, worrisome for an atypical infiltrative process. Pleural-based atelectasis is seen peripherally in the right upper lobe and right middle lobe. There appears to be vascular congestion and interstitial congestion, and some of this finding may represent early changes of edema. The mediastinum shows nonspecific mediastinal and hilar lymph nodes. Images through the upper abdome n are unremarkable. IMPRESSION: 1. No evidence of pulmonary embolus. 2. Cardiomegaly with evidence of vascular and interstitial congestion. There are peripheral pleural -based areas of infiltrate and/or atelectasis with a nodular infiltrative process bilaterally, which may represent changes of edema. Superimposed inflammatory process is not excluded. POS: AGW
[2017-12-29] MEDS: Donepezil HCl 10 MG TAB PO SCH (20:36)
[2017-12-29] MEDS: Simvastatin 20 MG TAB PO SCH (20:36)
[2017-12-30] MEDS: guaiFENesin 200 MG TAB PO SCH ×4 (01:22→19:52)
[2017-12-30] MEDS ORDERED: cefTRIAXone\\ROCEPHIN 1 GM in Sodium Chloride 0.9% 100 ML IVPB SCH (07:30)
[2017-12-30] MEDS: Ascorbic Acid 500 mg Chewable Tablet PO SCH ×2 (08:40→22:13)
[2017-12-30] MEDS: cefTRIAXone\\ROCEPHIN 1 GM, Syringe 0.4 ML in Sterile Water 9.6 ML SLOW IVP SCH (08:40)
[2017-12-30] MEDS: Ferrous Sulfate 325 MG TAB PO SCH (08:40)
[2017-12-30] MEDS: predniSONE 20 MG TAB PO SCH (08:40)
[2017-12-30] MEDS: Docusate 100 MG CAP PO SCH ×2 (08:41→22:12)
[2017-12-30] MEDS: DULoxetine 60 MG CAP PO SCH (08:41)
[2017-12-30] MEDS: Enoxaparin Sodium 40 MG/0.4 ML SYRINGE SC SCH (08:41)
[2017-12-30] MEDS: DULoxetine 30 MG CAP PO SCH (08:41)
[2017-12-30] MEDS: Furosemide 40 MG TAB PO SCH (08:42)
[2017-12-30] MEDS: Levothyroxine Sodium 25 MCG TAB PO SCH (08:43)
[2017-12-30] MEDS: Multivit, Therapeutic 1 TAB PO SCH (08:43)
[2017-12-30] MEDS: Mag-Al Plus 1200 MG/1200 MG/120 MG/30 ML UDCUP PO SCH (08:43)
[2017-12-30] MEDS: Insulin Detemir 100 UNITS/ML 10 UNITS in Pre-Filled Syringe SC SCH (09:43)
--- NOTE | 2017-12-30 12:24 | PDOC.PN ---
- Subjective Encounter Start Date: 12/30/17 Encounter Start Time: 11:15 -: old records requested/rev Pt seen and examined, chart reviewed in its entirety. This is my first visit with this patient. Follow for UTI, ? PNa, metabolic encephalopathy Pt is a long time resident of [facility], plan is to return there on discharge Pt still confused, unable ot give any history. No acute events overnight, no f/C, no N/V/D/c. no complaints. Pt given rocephin earlier, tolerated fine ROS not obtainalbe due tometabolic encephalopathy - Objective Resuscitation Status: Resuscitation Status DNR:Do Not Resuscitate MAR Reviewed: Yes Vital Signs & Weight: Vital Signs (12 hours) Temp Pulse Resp BP Pulse Ox 12/30/17 10:59 63 18 12/30/17 08:32 98.1 F 81 20 118/57 L 92 L 12/30/17 07:29 93 L 12/30/17 07:26 75 18 12/30/17 04:00 98.0 F 78 18 176/81 H Weight Weight 197 lb 12.8 oz I&O: 12/29/17 12/30/17 12/31/17 06:59 06:59 06:59 Intake Total 1805 Output Total 250 Balance 1555 Result Diagrams: 12/29/17 05:52 12/29/17 05:52 Additional Labs: Accuchecks 12/30/17 12/29/17 12/29/17 11:36 21:38 16:11 POC Glucose 282 H 229 H 321 H Radiology Reviewed by me: Yes EKG Reviewed by me: Yes Phys Exam - Physical Examination Constitutional: NAD HEENT: PERRLA, moist MMs, sclera anicteric, oral pharynx no lesions Neck: no nodes, no JVD, supple, full ROM Respiratory: no wheezing, no rales, no rhonchi, clear to auscultation bilateral Cardiovascular: no significant murmur, irregular Gastrointestinal: soft, non-tender, no distention, positive bowel sounds Musculoskeletal: pulses present, edema present Neurological: non-focal, normal sensation, moves all 4 limbs Lymphatic: no nodes Psychiatric: normal affect Skin: no rash, normal turgor, cap refill <2 seconds Dx/Plan (1) Healthcare-associated pneumonia Code(s): J18.9 - PNEUMONIA, UNSPECIFIED ORGANISM Status: Acute Comment: HCAP , presen ton admit, covered with levoflox and now rocephin added. CCM at present. (2) Anxiety and depression Code(s): F41.8 - OTHER SPECIFIED ANXIETY DISORDERS Status: Chronic (3) CAD (coronary artery disease) Code(s): I25.10 - ATHSCL HEART DISEASE OF [place] CORONARY ARTERY W/O ANG PCTRS Status: Chronic Qualifiers: Coronary Disease-Associated Artery/Lesion type: [place] artery [place] vs. transplanted heart: [place] heart Associated angina: without angina Qualified Code(s): I25.10 - Atherosclerotic heart disease of [place] coronary artery without angina pectoris (4) DM type 2 (diabetes mellitus, type 2) Status: Chronic Qualifiers: Diabetes mellitus termite treater helper insulin use: without termite treater helper use Diabetes mellitus complication status: with unspecified complications Qualified Code(s) : E11.8 - Type 2 diabetes mellitus with unspecified complications (5) Dementia Code(s): F03.90 - UNSPECIFIED DEMENTIA WITHOUT BEHAVIORAL DISTURBANCE Status: Chronic Qualifiers: Dementia type: Alzheimer's disease Alzheimer's disease onset: unspecified onset Dementia behavioral disturbance: without behavioral disturbance Qualified Code(s): G30.9 - Alzheimer's disease, unspecified; F02.80 - Dementia in other diseases classified elsewhere without behavioral disturbance (6) Diabetes type 2, controlled Code(s): E11.9 - TYPE 2 DIABETES MELLITUS WITHOUT COMPLICATIONS Status: Chronic (7) Dyslipidemia Code(s): E78.5 - HYPERLIPIDEMIA, UNSPECIFIED Status: Chronic (8) Obesity (BMI 30-39.9) Code(s): E66.9 - OBESITY, UNSPECIFIED Status: Chronic (9) Obesity hypoventilation syndrome Code(s): E66.2 - MORBID (SEVERE) OBESITY WITH ALVEOLAR HYPOVENTILATION Status : Chronic (10) Physical deconditioning Code(s): R53.81 - OTHER MALAISE Status: Chronic (11) UTI (urinary tract infection) Status: Acute Comment: uncoplicated, present on admit, resistant to multiple abx. on rocephin, kg fine at present. hx of keflex allergy,. monitor - Plan cont current plan of care, continue antibiotics, PT/OT, social group worker, respiratory therapy * .
[2017-12-30] MEDS: Insulin Regular 300 UNITS/3 ML VIAL SC PRN ×2 (12:45→19:54)
--- NOTE | 2017-12-30 15:21 | PDOC.CTH ---
Cardiology Progress Note - Subjective She is more confused today. - Objective Vital Signs Temp Pulse Resp BP BP Pulse Ox 12/30/17 12:44 98 F 87 16 126/58 L 91 L 12/30/17 10:59 63 18 12/30/17 08:32 98.1 F 81 20 118/57 L 92 L 12/30/17 07:29 93 L 12/30/17 07:26 75 18 12/30/17 04:00 98.0 F 78 18 176/81 H Weight 197 lb 12.8 oz 12/29/17 12/30/17 12/31/17 06:59 06:59 06:59 Intake Total 1805 Output Total 250 Balance 1555 - Physical Examination General/Neuro: NAD Neck: no JVD present Lungs: CTA, unlabored respirations Heart: RRR Abdomen: NT/ND Extremities: + edema B (1+) - Telemetry Telemetry Rhythm: S etta. - Labs Result Diagrams: 12/29/17 05:52 12/29/17 05:52 Troponin/CKMB CK-MB (CK-2) 5.5 ng/mL (0-6.6) 12/26/17 17:23 Troponin I 0.018 ng/mL (< 0.028) 12/27/17 09:02 - Assessment/Plan 1. Afib RVR, now in sinus 2. UTI 3. Dementia 4. Long first degree AV block. 5. 2.1 second pause at night. Asymptomatic. PLAN: - Continue to hold on all AV zena blocking agents for concern for bradycardia. - Aspirin alone for CVA prophylaxis due to high fall risk. - Will follow.
[2017-12-30] MEDS ORDERED: Methotrexate Sodium 2.5 MG TAB PO SCH (15:30)
[2017-12-30] MEDS: Simvastatin 20 MG TAB PO SCH (22:12)
[2017-12-30] MEDS: Donepezil HCl 10 MG TAB PO SCH (22:13)
[2017-12-31] MEDS: guaiFENesin 200 MG TAB PO SCH ×5 (03:31→23:28)
[2017-12-31 05:39] LABS: #Basophils 0.1 thou/uL (0.0-0.2); #Eosinphils 0.2 thou/uL (0.0-0.7); #Lymphocytes 4.4 thou/uL (1.20-3.40); #Monocytes 0.6 thou/uL (0.11-0.59); #Neutrophils 7.4 thou/uL (1.40-6.50); %Basophils 0.7 % (0.0-1.0); %Eosinophils 1.7 % (0.0-10.0); %Lymphocytes 34.5 % (21.0-51.0); %Monocytes 4.9 % (0.0-10.0); %Neutrophils 58.2 % (42.0-75.0); Hemoglobin 12.6 g/dL (12.0-16.0); Mean Corpuscular Hemoglobin 32.2 pg (27.0-31.0); Mean Platelet Volume 7.3 fL (7.4-10.4); Platelet Count 289 thou/uL (130-400); White Blood Cell (WBC) Count 12.7 thou/uL (4.8-10.8)
[2017-12-31 05:42] LABS: Anion Gap 10 mmol/L (10-20); BUN (Urea Nitrogen) 18 mg/dL (9.8-20.1); Calc. Creatinine Clearance 52 mL/min (70-130); Calcium 8.8 mg/dL (7.8-10.44); Carbon Dioxide 31 mmol/L (23-31); Chloride 100 mmol/L (98-107); Estimated GFR-MDRD 49; Glucose 213 mg/dL (83-110); Magnesium 1.8 mg/dL (1.6-2.6); Potassium 3.4 mmol/L (3.5-5.1); Sodium 138 mmol/L (136-145)
[2017-12-31] MEDS: Mag-Al Plus 1200 MG/1200 MG/120 MG/30 ML UDCUP PO SCH (08:48)
[2017-12-31] MEDS: cefTRIAXone\\ROCEPHIN 1 GM, Syringe 0.4 ML in Sterile Water 9.6 ML SLOW IVP SCH (08:50)
[2017-12-31] MEDS: Ferrous Sulfate 325 MG TAB PO SCH (08:50)
[2017-12-31] MEDS: predniSONE 20 MG TAB PO SCH (08:50)
[2017-12-31] MEDS: Ascorbic Acid 500 mg Chewable Tablet PO SCH ×2 (08:51→19:54)
[2017-12-31] MEDS: Furosemide 40 MG TAB PO SCH (08:51)
[2017-12-31] MEDS: DULoxetine 30 MG CAP PO SCH (08:51)
[2017-12-31] MEDS: Docusate 100 MG CAP PO SCH ×2 (08:51→19:55)
[2017-12-31] MEDS: DULoxetine 60 MG CAP PO SCH (08:51)
[2017-12-31] MEDS: Levothyroxine Sodium 25 MCG TAB PO SCH (08:51)
[2017-12-31] MEDS: Multivit, Therapeutic 1 TAB PO SCH (08:52)
[2017-12-31] MEDS: Enoxaparin Sodium 40 MG/0.4 ML SYRINGE SC SCH (08:52)
[2017-12-31] MEDS: Insulin Regular 300 UNITS/3 ML VIAL SC PRN ×4 (08:52→20:51)
[2017-12-31] MEDS: Insulin Detemir 100 UNITS/ML 10 UNITS in Pre-Filled Syringe SC SCH (11:27)
--- NOTE | 2017-12-31 11:27 | PDOC.PN ---
- Subjective Encounter Start Date: 12/31/17 Encounter Start Time: 08:25 Pt much more awake, sitting up eating what sheis fed, no coughing until taking a dep breath. knows sheisin the hospital, but cant tell me which, disoriented to year. oriented to person. No F/c,no N/V/D/C, no CP, denies SOB all systems reviewed and neg x as above, but unsure if reliability - Objective Resuscitation Status: Resuscitation Status DNR:Do Not Resuscitate MAR Reviewed: Yes Vital Signs & Weight: Vital Signs (12 hours) Temp Pulse Resp BP 12/31/17 10:55 80 16 12/31/17 06:57 70 16 12/31/17 03:53 98.0 F 73 16 143/75 H Weight Weight 197 lb 12.8 oz I&O: 12/30/17 12/31/17 01/01/18 06:59 06:59 06:59 Intake Total 1805 3434 Output Total 250 Balance 1555 3434 Result Diagrams: 12/31/17 04:56 12/31/17 04:56 Additional Labs: Accuchecks 12/31/17 12/30/17 12/30/17 06:04 20:09 17:17 POC Glucose 228 H 260 H 279 H 12/30/17 11:36 POC Glucose 282 H EKG Reviewed by me: Yes Phys Exam - Physical Examination Constitutional: NAD HEENT: PERRLA, moist MMs, sclera anicteric, oral pharynx no lesions Neck: no nodes, no JVD, supple, full ROM Respiratory: no wheezing, no rales, no rhonchi, clear to auscultation bilateral Cardiovascular: no significant murmur, no rub, irregular Gastrointestinal: soft, non-tender, no distention, positive bowel sounds Musculoskeletal: pulses present, edema present Lymphatic: no nodes Psychiatric: normal affect Skin: no rash, normal turgor, cap refill <2 seconds Dx/Plan (1) Metabolic encephalopathy Code(s): G93.41 - METABOLIC ENCEPHALOPATHY Status: Acute Comment: on top of chronic dementia. Improved today, unsure of basline. CCM, possible D/C back to NH in 1-2 days. (2) Healthcare-associated pneumonia Code(s): J18.9 - PNEUMONIA, UNSPECIFIED ORGANISM Status: Acute Comment: HCAP , present on admit, covered with levoflox and now rocephin added. CCM at present. (3) DM type 2 (diabetes mellitus, type 2) Status: Chronic Qualifiers: Diabetes mellitus petroleum terminal plant operator insulin use: without petroleum terminal plant operator use Diabetes mellitus complication status: with unspecified complications Qualified Code(s) : E11.8 - Type 2 diabetes mellitus with unspecified complications (4) Anxiety and depression Code(s): F41.8 - OTHER SPECIFIED ANXIETY DISORDERS Status: Chronic (5) CAD (coronary artery disease) Code(s): I25.10 - ATHSCL HEART DISEASE OF [place] CORONARY ARTERY W/O ANG PCTRS Status: Chronic Qualifiers: Coronary Disease-Associated Artery/Lesion type: [place] artery [place] vs. transplanted heart: [place] heart Associated angina: without angina Qualified Code(s): I25.10 - Atherosclerotic heart disease of [place] coronary artery without angina pectoris (6) Dementia Code(s): F03.90 - UNSPECIFIED DEMENTIA WITHOUT BEHAVIORAL DISTURBANCE Status: Chronic Qualifiers: Dementia type: Alzheimer's disease Alzheimer's disease onset: unspecified onset Dementia behavioral disturbance: without behavioral disturbance Qualified Code(s): G30.9 - Alzheimer's disease, unspecified; F02.80 - Dementia in other diseases classified elsewhere without behavioral disturbance (7) Diabetes type 2, controlled Code(s): E11.9 - TYPE 2 DIABETES MELLITUS WITHOUT COMPLICATIONS Status: Chronic (8) Dyslipidemia Code(s): E78.5 - HYPERLIPIDEMIA, UNSPECIFIED Status: Chronic (9) Obesity (BMI 30-39.9) Code(s): E66.9 - OBESITY, UNSPECIFIED Status: Chronic (10) Obesity hypoventilation syndrome Code(s): E66.2 - MORBID (SEVERE) OBESITY WITH ALVEOLAR HYPOVENTILATION Status : Chronic (11) Physical deconditioning Code(s): R53.81 - OTHER MALAISE Status: Chronic (12) UTI (urinary tract infection) Status: Acute Comment: uncoplicated, present on admit, resistant to multiple abx. on rocephin, kg fine at present. hx of keflex allergy,. monitor - Plan * .
--- NOTE | 2017-12-31 18:34 | PDOC.CTH ---
Cardiology Progress Note - Subjective She remains confused. - Objective Vital Signs Temp Pulse Resp BP Pulse Ox 12/31/17 15:30 98.6 F 82 17 136/63 93 L 12/31/17 14:18 80 16 12/31/17 11:35 98.6 F 82 17 136/63 93 L 12/31/17 10:55 80 16 12/31/17 08:45 97.8 F 76 16 141/60 H 93 L 12/31/17 06:57 70 16 Weight 197 lb 12.8 oz 12/30/17 12/31/17 01/01/18 06:59 06:59 06:59 Intake Total 1805 3434 Output Total 250 Balance 1555 3434 - Physical Examination General/Neuro: alert & oriented x3, NAD Neck: no JVD present Lungs: CTA, unlabored respirations Heart: RRR Abdomen: NT/ND Extremities: + edema B (1+) - Telemetry Telemetry Rhythm: NSR - Labs Result Diagrams: 12/31/17 04:56 12/31/17 04:56 Troponin/CKMB CK-MB (CK-2) 5.5 ng/mL (0-6.6) 12/26/17 17:23 Troponin I 0.018 ng/mL (< 0.028) 12/27/17 09:02 - Assessment/Plan 1. Afib RVR, now in sinus 2. UTI 3. Dementia 4. Long first degree AV block. 5. 2.1 second pause at night. Asymptomatic. No recurrence. PLAN: - Continue to hold on all AV zena blocking agents for concern for bradycardia. - Aspirin alone for CVA prophylaxis due to high fall risk. - Will sign off for now. Please call with any questions.
[2017-12-31] MEDS: Donepezil HCl 10 MG TAB PO SCH (19:54)
[2017-12-31] MEDS: Simvastatin 20 MG TAB PO SCH (19:55)
[2018-01-01 05:15] LABS: #Eosinphils 0.2 thou/uL (0.0-0.7); #Lymphocytes 4.6 thou/uL (1.20-3.40); #Monocytes 0.3 thou/uL (0.11-0.59); #Neutrophils 6.9 thou/uL (1.40-6.50); %Basophils 0.3 % (0.0-1.0); %Eosinophils 1.4 % (0.0-10.0); %Lymphocytes 38.2 % (21.0-51.0); %Monocytes 2.8 % (0.0-10.0); %Neutrophils 57.3 % (42.0-75.0); Hemoglobin 12.4 g/dL (12.0-16.0); Mean Corpuscular HGB CONC 32.6 g/dL (32.0-36.0); Mean Corpuscular Hemoglobin 32.2 pg (27.0-31.0); Mean Platelet Volume 6.9 fL (7.4-10.4); Platelet Count 291 thou/uL (130-400); RBC Distribution Width 13.1 % (11.5-14.5); Red Blood Cell (RBC) Count 3.85 mill/uL (4.20-5.40)
[2018-01-01] MEDS: guaiFENesin 200 MG TAB PO SCH ×2 (05:24→11:53)
[2018-01-01 05:43] LABS: ALT (SGPT) 14 U/L (8-55); AST (SGOT) 28 U/L (5-34); Albumin 2.8 g/dL (3.4-4.8); Alkaline Phosphatase 62 U/L (40-150); Anion Gap 11 mmol/L (10-20); BUN (Urea Nitrogen) 15 mg/dL (9.8-20.1); Bilirubin, Total 0.3 mg/dL (0.2-1.2); Calc. Creatinine Clearance 61 mL/min (70-130); Calcium 8.1 mg/dL (7.8-10.44); Carbon Dioxide 31 mmol/L (23-31); Chloride 98 mmol/L (98-107); Estimated GFR-MDRD 58; Globulin 3.5 g/dL (2.4-3.5); Glucose 206 mg/dL (83-110); Magnesium 1.6 mg/dL (1.6-2.6); Potassium 3.5 mmol/L (3.5-5.1); Protein, Total 6.3 g/dL (6.0-8.3); Sodium 136 mmol/L (136-145)
[2018-01-01] MEDS: Furosemide 40 MG TAB PO SCH (08:07)
[2018-01-01] MEDS: Multivit, Therapeutic 1 TAB PO SCH (08:08)
[2018-01-01] MEDS: Ferrous Sulfate 325 MG TAB PO SCH (08:08)
[2018-01-01] MEDS: Docusate 100 MG CAP PO SCH (08:08)
[2018-01-01] MEDS: predniSONE 20 MG TAB PO SCH (08:08)
[2018-01-01] MEDS: Ascorbic Acid 500 mg Chewable Tablet PO SCH (08:09)
[2018-01-01] MEDS: Levothyroxine Sodium 25 MCG TAB PO SCH (08:09)
[2018-01-01] MEDS: DULoxetine 30 MG CAP PO SCH (08:09)
[2018-01-01] MEDS: DULoxetine 60 MG CAP PO SCH (08:09)
[2018-01-01] MEDS: Enoxaparin Sodium 40 MG/0.4 ML SYRINGE SC SCH (08:09)
[2018-01-01] MEDS: Insulin Regular 300 UNITS/3 ML VIAL SC PRN ×2 (08:11→11:52)
[2018-01-01] MEDS: cefTRIAXone\\ROCEPHIN 1 GM, Syringe 0.4 ML in Sterile Water 9.6 ML SLOW IVP SCH (08:11)
[2018-01-01] MEDS ORDERED: Insulin Glargine 10 UNITS in Pre-Filled Syringe 1 EACH SC SCH (09:00)
[2018-01-01] MEDS: Mag-Al Plus 1200 MG/1200 MG/120 MG/30 ML UDCUP PO SCH (09:39)
--- NOTE | 2018-01-01 10:07 | DIS ---
DATE OF ADMISSION: 12/26/2017 DATE OF DISCHARGE: 12/31/2017 PRIMARY CARE PHYSICIAN: Stanley Carrasco M.D. at [facility]. DISCHARGE DIAGNOSES: 1. Healthcare-associated pneumonia. 2. Acute hypoxemic respiratory failure. 3. Metabolic encephalopathy. 4. Dementia. 5. Providencia stuartii urinary tract infection. 6. Obesity. 7. Hypertension. 8. Diabetes mellitus, type 2, chronic. CONSULTATIONS: 1. Infectious Disease, Dr. Christiano Villaseñor. 2. Cardiology, Dr. Romulo Hollins. PROCEDURES: 1. 2D echocardiogram on 12/27/2017 that showed EF 50%-55%, grade 1-3 diastolic dysfunction, mild con centric LVH, mildly dilated left atrium, mild annular calcification, moderate MR and mild TR. 2. CT angiogram of the thorax, 12/29/2017, showed no PE and cardiomegaly with evidence of vascular i nterstitial congestion, peripheral pleural-based areas of infiltrate or atelectasis with nodular infi ltrative process, possible superimposed inflammatory changes. History And Physical: Ms. Arenas is an 87-year-old female, who is a resident of [facility], who was brought to the emergency department for evaluation on 12/26/2017. She had had mental status changes, different than her baseline, with cough and fever and so subsequently was sent to the ER for eval. Per reports, she may have had a low oxygen level initially, but resolved by the time we actually admi tted her. We were called for admission. HOSPITAL COURSE: The patient was seen and examined by Dr. Serra and admitted inpatient. She was admi tted for healthcare-associated pneumonia after failing outpatient treatment with just azithromycin. She was placed on Levaquin in the emergency department, and this was continued. She was noted to be in atrial fibrillation, but that was rate controlled. Cardiology was consulted. An echocardiogram w as ordered. Overnight, 12/26/2017 to 12/27/2017, the patient remained stable. She was taken over by Dr. Brisa treadwell at day. She tolerated the antibiotics, but was still very encephalopathic, and per Cardiology, beta blockers were avoided. On 12/29/2017, she remained stable. However, her white blood cell count increased from 10.5-12.1. A ntibiotics were continued. I took over on 12/30/2017, she was started on Rocephin for coverage of her urinary tract infection an d tolerated it well. She was also continued on Levaquin for her pneumonia. From 12/30/2017 to 01/01/2018, her white blood cell count improved slowly, mental status markedly imp roved over the next 48 hours and today she is back at her baseline. She is afebrile and awake and al ert and conversant. She was stable for discharge to complete her antibiotics. PHYSICAL EXAMINATION: Patient was seen and examined on the day of discharge. Discharge plan and dis position were discussed with the patient and conveyed to nursing. DISCHARGE MEDICATIONS: 1. New prescriptions, Suprax 400 mg p.o. daily for 7 more days. 2. Levaquin 500 mg p.o. daily for 5 more days. 3. Remainder of her medications from admission have been continued. Those listed are Tylenol 325 mg p.o. q.4 hours p.r.n. headache or fever. 4. Vitamin C 500 mg p.o. b.i.d. 5. Aspirin 81 mg daily. 6. Vitamin D3 6,000 units p.o. daily. 7. Aricept 10 mg p.o. at bedtime. 8. Cymbalta 90 mg p.o. daily. 9. Iron sulfate 325 mg daily. 10. Lasix 60 mg daily. 11. Guaifenesin 40 mg p.o. q.6 hours for five more days. 12. DuoNeb 3 mL q.i.d. 13. Levothyroxine 25 mcg daily. 14. Magnesium hydroxide 5 mL p.o. daily. 15. Namenda 10 mg p.o. b.i.d. 16. Methotrexate 5 mg p.o. every week, to resume on a regular schedule. 17. Multivitamin daily. 18. Nitroglycerin 0.4 mg sublingual every 5 minutes p.r.n. chest pain. 19. Zocor 10 mg p.o. at bedtime. 20. ProSight vitamin daily. 21. Econazole x1 topically daily to affected areas. 22. Lantus 70 units subcu daily. 23. Humalog sliding scale as previous. 24. Loperamide 2 mg p.o. p.r.n. diarrhea. 25. Niacinamide 100 mg p.o. b.i.d. 26. Zofran 4 mg sublingual q.8 hours p.r.n. nausea and vomiting. 27. MiraLax 17 grams daily. 28. KCl 20 mEq daily. 29. Prednisone 10 mg daily. FOLLOWUP APPOINTMENTS: 1. Primary care physician within a week. 2. Dr. Hollins per his clinic. DISCHARGE CONDITION: Stable. DISPOSITION: Being discharged to [facility]. PT/OT was not ordered. She is wheelchair-bound. She is long-term [facility]. DISCHARGE ACTIVITY: Per cardiopulmonary limits. DISCHARGE DIET: Heart healthy diabetic diet recommended.
[2018-01-01 15:10] VITALS: BP 141/63; TEMP 98
[2018-01-02 14:24] LABS: CMV DNA-PCR Test Positive < 200 IU/mL (Negative)
== END 2018-01-01 15:08 | disposition home or self-care (01) | DRG 193 ==
LOC: ERS 16:05 → 2NO 20:10
PROVIDERS: ADMIT Internal Medicine; ATTEND Internal Medicine
DX: J18.9 Pneumonia, unspecified organism (principal); G93.40 Encephalopathy, unspecified; I50.33 Acute on chronic diastolic (congestive) heart failure; J96.01 Acute respiratory failure with hypoxia; N39.0 Urinary tract infection, site not specified; E66.2 Morbid (severe) obesity with alveolar hypoventilation; I48.91 Unspecified atrial fibrillation; E11.9 Type 2 diabetes mellitus without complications; G30.9 Alzheimer's disease, unspecified; F02.80 Dementia in other diseases classified elsewhere, unspecified severity, without behavioral disturbance, psychotic disturbance, mood disturbance, and anxiety; M81.0 Age-related osteoporosis without current pathological fracture; I25.10 Atherosclerotic heart disease of native coronary artery without angina pectoris; E78.5 Hyperlipidemia, unspecified; I11.0 Hypertensive heart disease with heart failure; K21.9 Gastro-esophageal reflux disease without esophagitis; E66.01 Morbid (severe) obesity due to excess calories; E03.9 Hypothyroidism, unspecified; Z66 Do not resuscitate; Y95 Nosocomial condition; B96.89 Other specified bacterial agents as the cause of diseases classified elsewhere; I44.30 Unspecified atrioventricular block; F41.9 Anxiety disorder, unspecified; F32.9 Major depressive disorder, single episode, unspecified; Z68.32 Body mass index [BMI] 32.0-32.9, adult; Z90.49 Acquired absence of other specified parts of digestive tract; Z90.710 Acquired absence of both cervix and uterus; Z79.4 Long term (current) use of insulin; Z79.899 Other long term (current) drug therapy; Z88.1 Allergy status to other antibiotic agents; Z88.8 Allergy status to other drugs, medicaments and biological substances
CPT/HCPCS: 36415; 36416; 71045; 71275; 80048; 80053; 81001; 82550; 82553; 83036; 83605; 83690; 83735; 83880; 84443; 84484; 85025; 86480; 87040; 87086; 87186; 87385; 87449; 87497; 87899; 89220; 93005; 93306; 94640; 96365; 96366; 96367; A4216; C9113; G8981-GP-CM; G8982-GP-CM; G8983-GP-CM; G8996-GN-CK; G8997-GN-CJ; J0696; J1650; J1815; J1956; J2543; J3370; J7050; J7506; J7620; J8610

== ENCOUNTER 2018-11-25 13:30 | Inpatient (IN) | payer MEDICARE, OTHER, MEDICAID ==
[~2018-11-25 13:30] MED LIST: ISOVUE-370 76%-LOCM 1 ML ONE
[2018-11-25] MEDS ORDERED: Dextrose 50% Abboject 50 ML SYRINGE ONE (13:35)
[2018-11-25 13:51] LABS: Base Excess-Venous -0.3 mmol/L (-2.0 to 3.0); Bicarbonate (HCO3v) 23.5 mmol/L (22.0-28.0); CO2 Tension (PvCO2) 35.6 mmHg (40.0-50.0); Calcium, Ionized 0.88 mmol/L (See Comments:); Chloride 125 mmol/L (98-107); Hemoglobin - Calc 19.1 g/dL (12.0-16.0); O2 Tension (PvO2) 53.8 mmHg (35.0-45.0); Potassium 10.9 mmol/L (3.5-5.1); Sodium 155 mmol/L (138-145); T. Carbon Dioxide 24.6 mmol/L (22.0-28.0); pH (Venous) 7.427 (7.320-7.430); vO2 Saturation-calc 88.6 % (60.0-85.0)
[2018-11-25 13:57] LABS: Hemoglobin 17.4 g/dL (12.0-16.0); Mean Corpuscular Hemoglobin 33.2 pg (27.0-31.0); Mean Platelet Volume 10.5 fL (7.4-10.4); Platelet Count 129 thou/uL (130-400); RBC Distribution Width 13.8 % (11.5-14.5); Red Blood Cell (RBC) Count 5.24 mill/uL (4.20-5.40); White Blood Cell (WBC) Count 20.1 thou/uL (4.8-10.8)
[2018-11-25 14:00] LABS: Bilirubin Negative (Negative); Blood, Urine Large (Negative); Clarity TURBID (Clear); Glucose, Urine (Dipstick) 250 mg/dL (Negative); Leukocyte Large (Negative); Nitrite Negative (Negative); Protein, Urine (Dipstick) 30 mg/dL (Neg-Trace); Specific Gravity, Urine 1.017 (1.002-1.036)
[2018-11-25 14:06] LABS: Pathc Cast-AUWi Flag 160.44 (0-2.49); Yeast-AUWi Flag 640.6 (0-25.0)
[2018-11-25 14:15] LABS: Bacteria/HPF 4+ HPF (None Seen); Hyaline Casts/LPF NONE SEEN LPF (0-3 Hyaline); Manual Microscopic Reviewed? No Path Casts Seen; Renal Epithelial None Seen HPF (0-3); Yeast-All Forms None Seen HPF (None Seen)
[2018-11-25 14:22] LABS: Band 7 % (5-11); Lymphocytes 27 % (21-51); MDiff Complete? YES; Monocytes 4 % (0-10); Neutrophil 62 % (42-75); Platelet Morphology Comment Appears Decreased
[2018-11-25 14:29] LABS: INR-International Normal Ratio 1.2; PTT 30.4 SEC (22.9-36.1); Prothrombin Time 14.8 SEC (12.0-14.7)
[2018-11-25 14:37] LABS: Albumin 3.2 g/dL (3.4-4.8)
[2018-11-25 14:39] LABS: Calcium 8.6 mg/dL (7.8-10.44); Chloride 124 mmol/L (98-107); Potassium 3.5 mmol/L (3.5-5.1); Sodium 158 mmol/L (136-145)
[2018-11-25 14:40] LABS: Globulin 3.4 g/dL (2.4-3.5); Glucose 187 mg/dL (83-110); Protein, Total 6.6 g/dL (6.0-8.3)
[2018-11-25 14:41] LABS: Anion Gap 14 mmol/L (10-20); Carbon Dioxide 24 mmol/L (23-31)
[2018-11-25 14:42] LABS: Bilirubin, Total 0.9 mg/dL (0.2-1.2)
[2018-11-25 14:43] LABS: Alkaline Phosphatase 78 U/L (40-150); Calc. Creatinine Clearance 0 mL/min (70-130); Estimated GFR-MDRD 27
[2018-11-25 14:44] LABS: BUN (Urea Nitrogen) 50 mg/dL (9.8-20.1)
[2018-11-25 14:45] LABS: AST (SGOT) 125 U/L (5-34)
[2018-11-25 14:46] LABS: ALT (SGPT) 133 U/L (8-55); Lipase 17 U/L (8-78)
[2018-11-25] MEDS ORDERED: Piperacillin/Tazobactam 4.5 GM VIAL ONE (14:51)
[2018-11-25] MEDS ORDERED: Sodium Chloride 0.9% 100 ML ONE (14:51)
--- NOTE | 2018-11-25 14:52 | CT ---
CT BRAIN WITHOUT CONTRAST: HISTORY: Altered mental status. FINDINGS: There are no previous exams for comparison. 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 There is edema in the left cerebellar hemisphere compared to the right. No hemorrhage, midline shift, or abno rmal extraaxial fluid collections are seen. The bony calvarium is intact. The visualized paranasal sinuses and mastoid air cells are well aerated. There is mucosal disease in the paranasal sinuses. 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 The possibility of underlyi ng mass cannot be excluded. Further evaluation with MRI would be helpful. Discussed over the telephone with ER physician, Dr. Macias at 2:03 p.m. JULIA SHAFFER
--- NOTE | 2018-11-25 14:55 | CT ---
FCTA of the head with and without IV contrast and 3-D reformatted imaging. CTA of the neck with IV contrast and 3-D reformatted imaging 3 D Volume Rendering: DATE: 11/25/2018 2:08 PM HISTORY: Altered mental status. Last seen normal one hour ago. COMPARISON: None FINDINGS: CT Head: Postcontrast images demonstrate age-appropriate atrophy. Cortical jackson-white matter differen tiation is preserved. Chronic small vessel ischemic changes of the white matter are identified Bilateral ocular lens implants are appropriately located. Both globes are intact. Retrobulbar fat is preserved. Symmetric attenuation of the optic nerves and ocular rectus muscles Sphenoid sinus mucosal disease Aerodigestive tract is patent. No obvious masses in the oral cavity. Midline fatty atrophy of the ton olivia is preserved Fatty replacement of the parotid glands, symmetric. Symmetric attenuation of the submandibular glands . Symmetric attenuation the sternocleidomastoid muscles. Symmetric attenuation of the thyroid gland. No evidence of lymphadenopathy by size criteria. Upper normal left level 1 lymph node measuring 1.8 x 1.1 cm. Cervical spine vertebral body height is maintained. No fracture. Varying degrees of central canal michael nosis and foraminal narrowing on the basis of degenerative change Upper mediastinum and lung apices demonstrate chronic changes Mass effect upon the right supraglottic larynx secondary to medial deviation the right internal carot id artery CT ANGIOGRAM: Aorta: Atherosclerosis in the visualized aorta. Right carotid: Right carotid artery origin has appropriate enhancement and luminal diameter. Atherosclerosis without significant stenosis based upon NASCET criteria in the right carotid bifurcation and proximal electrical intern al carotid artery. Left carotid: Left carotid artery origin has appropriate enhancement and luminal diameter. No significant stenosis based upon NASCET criteria. Bilateral cervical vertebral arteries are patent throughout their course in the neck. Bilateral subcl gato arteries are unremarkable. Symmetric enhancement and luminal diameter of the distal cervical and intracranial internal carotid a rteries. Atherosclerosis and bilateral cavernous and paraclinoid segments without significant stenosi s. Anterior circulation: Diminutive right A1 segment likely congenital variant. Symmetric enhancement an d luminal diameter of the M1 segment and proximal MCA branches. A2 segments are symmetric. Posterior circulation: Both PICA artery origins are unremarkable. Both vertebral arteries supply norm al caliber basilar artery. No significant stenosis. The left P1 segment has appropriate enhancement. The right SYSTEMS SUPPORT ENGINEER has a origin. No evidence of significant stenosis or aneurysm the anterior posterior circulation IMPRESSION: No hemodynamically significant stenosis, occlusion or aneurysmal dilation. Transcribed Date/Time: 11/25/2018 3:25 PM
--- NOTE | 2018-11-25 15:02 | RAD ---
PORTABLE CHEST 1 VIEW: DATE: 11/25/2018. TIME: 2:01 p.m. HISTORY: Altered mental status. FINDINGS: Comparison is made with the exam of 12/26/2017. The heart size is enlarged. The aorta is tortuous. The lungs are expanded without lobar consolidati on, pneumothoraces, jennifer pulmonary edemas, or large effusions, There are degenerative changes in th e spine and shoulder joints. IMPRESSION: No acute process. POS: C
[2018-11-25] MEDS ORDERED: Aspirin 300 MG Suppository ONE (15:57)
[2018-11-25] MEDS ORDERED: Sodium Chloride 0.9% 1,000 ML IV SCH (16:45)
[2018-11-25] MEDS ORDERED: Dextrose 50% Abboject 50 ML SYRINGE SLOW IVP PRN (16:46)
[2018-11-25 17:25] VITALS: BMI 27.8
[2018-11-25] MEDS ORDERED: Piperacillin/Tazobactam 3.375 GM in Sodium Chloride 0.9% 100 ML IVPB SCH (18:00)
[2018-11-25 18:27] LABS: Lactic Acid 1.1 mmol/L (0.5-2.2)
[2018-11-25] MEDS: Piperacillin/Tazobactam 2.25 GM in Sodium Chloride 0.9% 100 ML IVPB SCH (21:19)
[2018-11-25 22:12] LABS: Glucose 251 mg/dL (83-110)
[2018-11-25] MEDS ORDERED: Dextrose 5 %-0.45 % NaCl 1,000 ML IV SCH (23:00)
--- NOTE | 2018-11-25 23:55 | HP ---
CHIEF COMPLAINT: Altered mental status. HISTORY OF PRESENT ILLNESS: This patient is an 88-year-old female with a history of dementia, debility, where she is essentially bed bound, chronic leukemia, and history of paroxysmal atrial fibrillation, for which she was not receiving anticoagulation due to fear of increased risk. The patient was at the residential today when she developed abrupt onset of altered mental status. EMS was called and the patient had a GCS of 9 at that time. The patient had a D stick of 75, glucose was given with no improvement. She was brought to the emergency department. The patient has been minimally responsive since arriving. CT scan has revealed a large left cerebellar CVA. The discussion was held with the family, but they opted not to pursue tPA. REVIEW OF SYSTEMS: Unobtainable as the patient is nonresponsive. PAST MEDICAL HISTORY: Notable for paroxysmal atrial fibrillation, type 2 diabetes, degenerative joint disease, Alzheimer's disease, osteoporosis, coronary artery disease, hyperlipidemia, and gastroesophageal reflux. PAST SURGICAL HISTORY: Cholecystectomy, several abdominal hernia repairs, and hysterectomy. FAMILY HISTORY: Prior records indicate she has a family history of coronary artery disease, stroke, and cancer. She has no family history of coronary artery disease, stroke, cancer, or other heritable diseases. SOCIAL HISTORY: The patient lives in a residential and is a longstanding DNR. Nonsmoker, nondrinker, nondrug user. Her daughter is here and confirms that the patient is DNR and their primary goal is to ensure the patient's comfort. They are accepting the treatment. ALLERGIES: CEPHALEXIN AND METFORMIN. MEDICATIONS: 1. Niacinamide 100 mg b.i.d. 2. MiraLAX 17 g daily. 3. Ferrous sulfate 325 daily. 4. Lasix 20 mg 3 p.o. daily. 5. Levothyroxine 25 mcg daily. 6. Prednisone 10 mg daily. 7. Simvastatin 10 mg daily. 8. Centrum Silver 1 p.o. daily. 9. Cymbalta 30 mg daily. 10. Donepezil 10 mg at bedtime. 11. Maalox p.r.n. PHYSICAL EXAMINATION: VITAL SIGNS: BP 126/68, pulse 91, respirations 20, and O2 saturation 99% on room air. GENERAL APPEARANCE: Age-appropriate female, lying supine in the bed, appears to be sleeping. When they attempt to wake her, she will open her eyes. She stares straight ahead. She did contract her left arm up to her chest. The patient's daughter reports that is the most reaction that she has had since she arrived. HEENT: Her pupils are equal and sluggish, but slightly reactive. No OP lesions. NECK: Supple and symmetric with no lymphadenopathy. HEART: Regular rate and rhythm with no murmurs, gallops, or rubs. LUNGS: Clear to auscultation bilaterally with good chest wall expansion and air exchange. ABDOMEN: Soft, nontender, and nondistended. She has area of the central abdomen near where an umbilicus would be where she has some old scarring and abnormal area of palpation, which actually is crinkling under the skin as if it is almost like a synthetic-type material, but it is likely just some scar of the peritoneal area. EXTREMITIES: Cold, bit cyanotic with blanching. Peripheral pulses are diminished. NEUROLOGICAL: The patient does not appear to be significantly interactive. She did open her eyes to semi-noxious stimuli. She will not follow commands. LABORATORY DATA: White count 20.1, hemoglobin 17.4, and platelets 129. INR 1.2, PTT 30.4. ABG; pH 7.427, pCO2 is 35.6, and pO2 is 53.8. Initial glucose was 53, lactic acid 2.5, TSH 2.45. Subsequent glucose was 232. Sodium 158, potassium 3.5, chloride 124, CO2 of 24, BUN is 50, and creatinine 1.77. AST 125, ALT 133, and albumin 3.2. Urinalysis shows greater than 50 white cells, 7 to 10 red cells, large leukocyte esterase, large blood, 215 glucose, and 4+ bacteria. CT brain shows large left cerebellar infarct. Chest x-ray shows no acute processes. CT angio shows no hemodynamically significant stenosis, occlusion, or aneurysmal dilatation. IMPRESSION AND PLAN: 1. Acute cerebellar cerebrovascular accident showing fairly prominently on the CT scan, so it may be a little less acute than her symptoms would have indicated. She did not receive tPA. After discussions with the patient's family, she appears to be somewhat encephalopathic due to the cerebrovascular accident and other metabolic issues. We will initiate PT, OT, Speech Therapy, and continue to monitor. I did have a long discussion with the patient's daughter and the primary focus for them at this point is ensuring the patient's comfort and she is a DNR. 2. Chronic leukemia. The patient's daughter had confirmed that the details are otherwise not known. 3. Urinary tract infection. We will continue on Zosyn. She is allergic to cephalosporins and follow up cultures. 4. Prerenal azotemia with likely some dehydration. She has received some fluid boluses here in the emergency room. We will continue with hydration and recheck in the morning. 5. Hyponatremia likely due to dehydration. We will recheck after hydration. 6. History of atrial fibrillation. She is in sinus rhythm now. She has not been on anticoagulation for her high risk, however, her primary risk factor for stroke is her advanced age. 7. Dementia, chronic, stable. 8. Elevated LFTs, unclear etiology, may be hypoperfusion due to dehydration or sepsis. We will recheck in the morning. If they remain elevated, may require further investigation with ultrasound. 9. Diabetes mellitus. We will continue Accu-Cheks and sliding scale. The patient is n.p.o. until she can be cleared by Speech Therapy, but looks like at this point she does not have the cognition to consider feeding, so we will be careful with blood sugar treatments. 10. Hyperlipidemia, stable. We will withhold any medications until the patient is more stable. 11. Hypothyroidism noted. 12. Possible sepsis. The patient's white count is unreliable because of her chronic leukemia. She did have some tachycardia when EMS initially picked her up. She certainly has evidence of urinary tract infection. She has had some fluid resuscitation and her blood pressure has been stable. We will continue to cover with antibiotics. Job ID: [id number]
[2018-11-26] MEDS: Piperacillin/Tazobactam 2.25 GM in Sodium Chloride 0.9% 100 ML IVPB SCH ×4 (04:07→20:38)
[2018-11-26 05:58] LABS: ALT (SGPT) 109 U/L (8-55); AST (SGOT) 80 U/L (5-34); Albumin 3.1 g/dL (3.4-4.8); Alkaline Phosphatase 72 U/L (40-150); Anion Gap 12 mmol/L (10-20); BUN (Urea Nitrogen) 42 mg/dL (9.8-20.1); Bilirubin, Total 1.4 mg/dL (0.2-1.2); Calc. Creatinine Clearance 32 mL/min (70-130); Calcium 8.8 mg/dL (7.8-10.44); Carbon Dioxide 24 mmol/L (23-31); Chloride 129 mmol/L (98-107); Estimated GFR-MDRD 32; Globulin 3.4 g/dL (2.4-3.5); Glucose 67 mg/dL (83-110); Potassium 3.3 mmol/L (3.5-5.1); Protein, Total 6.5 g/dL (6.0-8.3); Sodium 162 mmol/L (136-145)
[2018-11-26 06:07] LABS: Band 18 % (5-11); Hemoglobin 16.9 g/dL (12.0-16.0); Lymphocytes 32 % (21-51); MDiff Complete? YES; Macrocytosis SLIGHT = 6-15 cells (100X) (0-5/hpf); Mean Corpuscular HGB CONC 31.4 g/dL (32.0-36.0); Mean Corpuscular Hemoglobin 33.8 pg (27.0-31.0); Mean Platelet Volume 10.3 fL (7.4-10.4); Monocytes 4 % (0-10); Neutrophil 46 % (42-75); Platelet Count 113 thou/uL (130-400); Platelet Morphology Comment Appears Decreased; RBC Distribution Width 13.6 % (11.5-14.5); White Blood Cell (WBC) Count 20.2 thou/uL (4.8-10.8)
[2018-11-26] MEDS ORDERED: Dextrose 5% in Water 1,000 ML IV SCH ×3 (06:30→18:10)
[2018-11-26] MEDS: Enoxaparin Sodium 30 MG/0.3 ML SYRINGE SC SCH (09:19)
[2018-11-26] MEDS: Aspirin 300 MG Suppository PR SCH (09:19)
--- NOTE | 2018-11-26 12:51 | PDOC.PN ---
- Subjective Encounter Start Date: 11/26/18 Encounter Start Time: 10:30 Subjective: lethargic, not oriented -: is closing eyes, occasionally responds by nodding her head -: daughter at bedside - Objective Resuscitation Status - Order Detail: 11/25/18 16:37 Resuscitation Status Routine Resuscitation Status: DNAR: NO Resuscitation Discussed with: Patient's daughter PATTI Reviewed: Yes Vital Signs & Weight: Vital Signs (12 hours) Temp Pulse Resp BP BP Pulse Ox 11/26/18 11:24 99.3 F 124 H 26 H 101/57 L 100 11/26/18 08:00 98.9 F 106 H 24 H 112/74 98 11/26/18 07:40 98 11/26/18 04:00 98.7 F 96 20 110/73 97 Weight Weight 178 lb Result Diagrams: 11/26/18 05:08 11/26/18 05:08 Additional Labs: Accuchecks 11/25/18 11/25/18 11/25/18 19:40 14:55 13:56 POC Glucose 56 L* 128 H 232 H 11/25/18 13:35 POC Glucose 53 L* Phys Exam - Physical Examination HEENT: PERRLA, sclera anicteric dry mucosa Neck: no JVD, supple Respiratory: no wheezing, no rales Cardiovascular: RRR, no significant murmur Gastrointestinal: soft, non-tender, positive bowel sounds Musculoskeletal: no edema, pulses present likely left hemiplegia, aphasia Dx/Plan (1) Acute CVA (cerebrovascular accident) Code(s): I63.9 - CEREBRAL INFARCTION, UNSPECIFIED Status: Acute Comment: large left cerebellar cva (2) Severe dehydration Code(s): E86.0 - DEHYDRATION Status: Acute (3) VIOLA (acute kidney injury) Code(s): N17.9 - ACUTE KIDNEY FAILURE, UNSPECIFIED Status: Acute (4) CLL (chronic lymphocytic leukemia) Code(s): C91.90 - LYMPHOID LEUKEMIA, UNSPECIFIED NOT HAVING ACHIEVED REMISSION Status: Chronic (5) Metabolic encephalopathy Code(s): G93.41 - METABOLIC ENCEPHALOPATHY Status: Acute (6) UTI (urinary tract infection) Status: Acute Qualifiers: Urinary tract infection type: acute cystitis Hematuria presence: without hematuria Qualified Code(s): N30.00 - Acute cystitis without hematuria Comment: uncoplicated, present on admit, resistant to multiple abx. on rocephin , kg fine at present. hx of keflex allergy,. monitor (7) CAD (coronary artery disease) Code(s): I25.10 - ATHSCL HEART DISEASE OF [place] CORONARY ARTERY W/O ANG PCTRS Status: Chronic Qualifiers: Coronary Disease-Associated Artery/Lesion type: [place] artery [place] vs. transplanted heart: [place] heart Associated angina: without angina Qualified Code(s): I25.10 - Atherosclerotic heart disease of [place] coronary artery without angina pectoris (8) DM type 2 (diabetes mellitus, type 2) Status: Chronic Qualifiers: Diabetes mellitus [facility] insulin use: without terminal system operator use Diabetes mellitus complication status: with unspecified complications Qualified Code(s) : E11.8 - Type 2 diabetes mellitus with unspecified complications (9) Dementia Code(s): F03.90 - UNSPECIFIED DEMENTIA WITHOUT BEHAVIORAL DISTURBANCE Status: Chronic Qualifiers: Dementia type: Alzheimer's disease Alzheimer's disease onset: unspecified onset Dementia behavioral disturbance: without behavioral disturbance Qualified Code(s): G30.9 - Alzheimer's disease, unspecified; F02.80 - Dementia in other diseases classified elsewhere without behavioral disturbance (10) Dyslipidemia Code(s): E78.5 - HYPERLIPIDEMIA, UNSPECIFIED Status: Chronic - Plan poor prognosis, await neurology opinion -: I have d/w daughter reg all lab work/imaging etc, is aware of above -: d5w, asp rectal, zosyn for uti -: pt is DNAR and had expressed comfort care if she gets worse * . Review of Systems - Medications/Allergies Allergies/Adverse Reactions: Allergies Allergy/AdvReac Type Severity Reaction Status Date / Time cephalexin [From Keflex] Allergy Verified 01/26/17 22:45 metformin Allergy Verified 01/26/17 22:45 Medications: Current Medications Aspirin (Aspirin) 300 mg FL DAILY FANNY Last Admin: 11/26/18 09:19 Dose: 300 mg Dextrose/Water (Dextrose 50%) 25 gm SLOW IVP PRN PRN PRN Reason: Hypoglycemia Last Admin: 11/25/18 21:35 Dose: 25 gm Enoxaparin Sodium (Lovenox) 30 mg SC 0900 FANNY Last Admin: 11/26/18 09:19 Dose: 30 mg Glucagon (Glucagon) 1 mg IM PRN PRN PRN Reason: Hypoglycemia Piperacillin Sod/Tazobactam (Sod 2.25 gm/ Sodium Chloride) 100 mls @ 200 mls/ hr IVPB 0300,0900,1500,2100 [facility] Last Admin: 11/26/18 09:25 Dose: 100 mls Dextrose/Water (D5w) 1,000 mls @ 0 mls/hr IV .Q0M PRN PRN Reason: Hypoglycemia Dextrose/Water (D5w) 1,000 mls @ 100 mls/hr IV .Q10H [facility] Last Admin: 11/26/18 12:39 Dose: 1,000 mls Insulin Human Lispro (Humalog) 0 units SC .MILD SLIDING SCALE PRN PRN Reason: Mild Correctional Scale
--- NOTE | 2018-11-26 13:51 | CT ---
FCTA of the head with and without IV contrast and 3-D reformatted imaging. CTA of the neck with IV contrast and 3-D reformatted imaging 3 D Volume Rendering: DATE: 11/25/2018 2:08 PM HISTORY: Altered mental status. Last seen normal one hour ago. COMPARISON: None FINDINGS: CT Head: Postcontrast images demonstrate age-appropriate atrophy. Cortical jackson-white matter differen tiation is preserved. Chronic small vessel ischemic changes of the white matter are identified Bilateral ocular lens implants are appropriately located. Both globes are intact. Retrobulbar fat is preserved. Symmetric attenuation of the optic nerves and ocular rectus muscles Sphenoid sinus mucosal disease Aerodigestive tract is patent. No obvious masses in the oral cavity. Midline fatty atrophy of the ton olivia is preserved Fatty replacement of the parotid glands, symmetric. Symmetric attenuation of the submandibular glands . Symmetric attenuation the sternocleidomastoid muscles. Symmetric attenuation of the thyroid gland. No evidence of lymphadenopathy by size criteria. Upper normal left level 1 lymph node measuring 1.8 x 1.1 cm. Cervical spine vertebral body height is maintained. No fracture. Varying degrees of central canal michael nosis and foraminal narrowing on the basis of degenerative change Upper mediastinum and lung apices demonstrate chronic changes Mass effect upon the right supraglottic larynx secondary to medial deviation the right internal carot id artery CT ANGIOGRAM: Aorta: Atherosclerosis in the visualized aorta. Right carotid: Right carotid artery origin has appropriate enhancement and luminal diameter. Atherosclerosis without significant stenosis based upon NASCET criteria in the right carotid bifurcation and proximal internal carver al carotid artery. Left carotid: Left carotid artery origin has appropriate enhancement and luminal diameter. No significant stenosis based upon NASCET criteria. Bilateral cervical vertebral arteries are patent throughout their course in the neck. Bilateral subcl gato arteries are unremarkable. Symmetric enhancement and luminal diameter of the distal cervical and intracranial internal carotid a rteries. Atherosclerosis and bilateral cavernous and paraclinoid segments without significant stenosi s. Anterior circulation: Diminutive right A1 segment likely congenital variant. Symmetric enhancement an d luminal diameter of the M1 segment and proximal MCA branches. A2 segments are symmetric. Posterior circulation: Both PICA artery origins are unremarkable. Both vertebral arteries supply norm al caliber basilar artery. No significant stenosis. The left P1 segment has appropriate enhancement. The right SENIOR WIND ENERGY CONSULTANT has a origin. No evidence of significant stenosis or aneurysm the anterior posterior circulation IMPRESSION: No hemodynamically significant stenosis, occlusion or aneurysmal dilation. Transcribed Date/Time: 11/26/2018 1:50 PM
[2018-11-26] MEDS: HumaLOG 300 UNITS/3 ML VIAL SC PRN ×2 (17:52→21:21)
[2018-11-26 19:01] LABS: Anion Gap 17 mmol/L (10-20); BUN (Urea Nitrogen) 44 mg/dL (9.8-20.1); Calc. Creatinine Clearance 26 mL/min (70-130); Calcium 8.5 mg/dL (7.8-10.44); Carbon Dioxide 21 mmol/L (23-31); Chloride 125 mmol/L (98-107); Estimated GFR-MDRD 25; Glucose 276 mg/dL (83-110); Potassium 3.3 mmol/L (3.5-5.1); Sodium 160 mmol/L (136-145)
[2018-11-26] MEDS ORDERED: Potassium Chloride 20 MEQ in Premix Bag 1 BAG IVPB SCH ×2 (20:00→20:15)
[2018-11-26 20:52] LABS: Anion Gap 11 mmol/L (10-20); BUN (Urea Nitrogen) 42 mg/dL (9.8-20.1); Calc. Creatinine Clearance 23 mL/min (70-130); Calcium 8.2 mg/dL (7.8-10.44); Carbon Dioxide 25 mmol/L (23-31); Chloride 122 mmol/L (98-107); Estimated GFR-MDRD 23; Glucose 359 mg/dL (83-110); Potassium 3.3 mmol/L (3.5-5.1); Sodium 155 mmol/L (136-145)
--- NOTE | 2018-11-26 21:19 | CON ---
DATE OF CONSULTATION: 11/26/2018 REASON FOR CONSULTATION: Hypernatremia and acute kidney injury. CONSULTING PHYSICIAN: Dr. Julianne Villasenor. CHIEF COMPLAINT: Acute mental status change. HISTORY OF PRESENT ILLNESS: The patient is currently nonverbal and the following history was obtained from review of medical records. The patient is an 88-year-old female with known history of dementia and debilitation, [facility] resident, who is essentially bedbound, who was brought in from the [facility] due to acute onset of mental status change. EMS had reported GCS of 9 at evaluation in the [facility] with blood glucose of 75 and the patient was given glucose with no significant improvement in mental status, hence was brought to the emergency room. Further evaluation in the emergency room with CT scan revealed large left cerebellar CVA and the patient's relative opted not to proceed with tPA. The patient also was noted to have hypernatremia with a sodium of 158 as well as increase in creatinine to 1.77 as well as elevated BUN and abnormal LFTs. Urinalysis also was suggestive of UTI. The patient reportedly has not been eating well in the [facility] and was felt to be dehydrated, hence was started on hypertonic saline given hypernatremia, but sodium went up further from 158 on presentation to 162 earlier in the morning. Saline infusion was discontinued and the patient was started on plain 5% dextrose at 100 mL/h. Mental status reportedly has improved with the patient being awake, but she remained nonverbal. PAST MEDICAL HISTORY: 1. Paroxysmal atrial fibrillation. 2. Type 2 diabetes mellitus. 3. Degenerative joint disease. 4. Alzheimer dementia. 5. Coronary artery disease. 6. Hyperlipidemia. 7. Gastroesophageal reflux disease. 8. Hiatal hernia. 9. Chronic leukemia. 10. Chronic debilitation with bedbound status. PAST SURGICAL HISTORY: 1. Cholecystectomy. 2. Abdominal hernia repair. 3. Hysterectomy. FAMILY HISTORY: Reviewed, noncontributory. SOCIAL HISTORY: The patient currently lives in a [facility]. She is a nonsmoker, nondrinker, and nondrug user. ALLERGIES: CEPHALEXIN AND METFORMIN. MEDICATIONS: Home medications: 1. Niacinamide 100 mg b.i.d. 2. MiraLAX 17 g daily. 3. Ferrous sulfate 325 mg p.o. daily. 4. Lasix 60 mg daily. 5. Lantus 65 units subcutaneously daily. 6. Sliding scale insulin. 7. Albuterol/ipratropium 3 mL nebulization q.i.d. p.r.n. 8. Levothyroxine 25 mcg p.o. daily. 9. Cymbalta 90 mg p.o. daily. 10. Aricept 10 mg p.o. daily at bedtime. 11. Cholecalciferol 6000 units p.o. daily. 12. Aspirin 81 mg p.o. daily. 13. Ascorbic acid 500 mg p.o. b.i.d. 14. Methotrexate 5 mg p.o. every 7 days. 15. Nitroglycerin 0.4 mg sublingual q.5 minutes p.r.n. for chest pain. 16. Ondansetron 4 mg sublingual q.4 hours p.r.n. for nausea and vomiting. 17. Loperamide 2 mg p.o. q.4 p.r.n. 18. Acetaminophen 325 mg p.o. q.4 p.r.n. 19. Simvastatin 10 mg p.o. daily at bedtime. 20. Prednisone 10 mg p.o. daily. 21. Potassium chloride 20 mEq p.o. b.i.d. 22. Namenda 10 mg p.o. b.i.d. Current medications: 1. 5% dextrose 100 mL/h. 2. Zosyn 2.25 g q.6h. 3. Aspirin 300 mg p.o. rectally. 4. Lovenox 30 mg subcutaneously daily. 5. Sliding scale insulin. REVIEW OF SYSTEMS: Could not be performed due to the patient's condition. PHYSICAL EXAMINATION: VITAL SIGNS: Current vitals at 3:43 p.m., November 26, 2018; temperature 99.1, pulse 110, respiratory rate 24, SpO2 of 95 on room air, blood pressure 110/64. GENERAL: Obese elderly female, in no obvious distress. Afebrile, anicteric, acyanotic. HEENT: Normocephalic, atraumatic. Pupils are reacting to light. Oral mucosa is dry. RESPIRATORY: Fair air entry bilaterally with no obvious crackle or rhonchi. CARDIOVASCULAR: Irregular rhythm. Tachycardic with normal heart sounds one and two. GI: obese, soft, and nontender. Bowel sound is noted. EXTREMITIES: Grossly normal looking with no edema, erythema, or cyanosis. SKIN: Seem rather dry. NEUROLOGIC: Awake, but nonverbal. Face is symmetrical. The patient moves all extremities to stimulation. Power could not be assessed. DIAGNOSTIC DATA: Current BMP at 6:12 p.m., November 26, 2018, showed sodium 160, potassium 3.3, chloride 125, CO2 of 21, anion gap 17, BUN 44, creatinine 1.88, glucose 276, calcium 8.5. Of note, the patient had a sodium of 162 and chloride of 129 at 5:00 a.m., November 26, 2018. Creatinine also was 1.52. On admission, sodium was 158, chloride was 124, creatinine was 1.77, and BUN was 50. CBC today, November 26, 2018, showed WBC count of 20.2, hemoglobin of 16.9, MCV of 108, platelet of 113. Urinalysis on admission, November 25, 2018, showed urine protein of 30, urine glucose of 250, large blood, large leukocyte esterase, negative nitrites, bilirubin and ketones. Microscopy showed 7 to 10 rbc's and greater than 50 to [id number] WBC count. Note that the patient had normal WBC count of 9.7 on September 19. On September 19 also, creatinine was 0.98 and sodium was 141. CT scan of the brain performed on November 25, 2018 showed finding suggestive of acute left cerebellar hemispheric infarction. The possibility of underlying mass cannot be excluded and further evaluation with MRI was recommended. CT angio of the head and neck showed no hemodynamically significant stenosis, occlusion, or aneurysmal dilatation. ASSESSMENT: 1. Symptomatic hypernatremia: Serum sodium went up from 158 on admission to 162 earlier on. This most likely due to water deficit. The patient, who is debilitated, old with dementia, cannot respond to thirst. It was reported also the patient has poor intake in the last few days. Calculated water deficit is at about 5.5 L. The patient has mental status change, decreased responsiveness. 2. Acute encephalopathy: Multifactorial most likely metabolic from hypernatremia, dehydration, acute kidney injury, urinary tract infection accute cerebrovascular accident superimposed on baseline dementia. 3. Acute kidney injury: Most likely due to hemodynamic factors. The patient has poor oral intake. 4. Urinary tract infection. 5. Acute cerebrovascular accident. 6. History of paroxysmal atrial fibrillation. 7. Dementia. 8. Hypothyroidism. PLAN: 1. We will increase 5% dextrose to 250 mL/h in the next 4 hours and monitor BMP every 2 hours with a view to bringing down the serum sodium down to 155. We will also get urine and serum osmolality as well as urine sodium, urine protein, and urine creatinine. 2. We will replete potassium with IV potassium chloride. 3. Hyperglycemia, which is anticipated to be worse with dextrose infusion. It will be treated with insulin. 4. We will monitor neurological status as well as renal function and electrolytes, and adjust treatment as needed. 5. We will recheck BMP in the morning. Many thanks for involving us in the care of this patient. We will follow along with you. Job ID: [id number]
[2018-11-26] MEDS: Dextrose 5 %-0.45 % NaCl 1,000 ML IV SCH (21:23)
[2018-11-26 22:39] LABS: Anion Gap 10 mmol/L (10-20); BUN (Urea Nitrogen) 42 mg/dL (9.8-20.1); Calc. Creatinine Clearance 26 mL/min (70-130); Calcium 8.2 mg/dL (7.8-10.44); Carbon Dioxide 23 mmol/L (23-31); Chloride 122 mmol/L (98-107); Estimated GFR-MDRD 26; Glucose 331 mg/dL (83-110); Potassium 3.4 mmol/L (3.5-5.1); Sodium 152 mmol/L (136-145)
[2018-11-26 23:06] LABS: Creatinine, Urine 79.61 mg/dL (47-110)
[2018-11-27 01:08] LABS: BUN (Urea Nitrogen) 40 mg/dL (9.8-20.1); Calc. Creatinine Clearance 28 mL/min (70-130); Calcium 8.1 mg/dL (7.8-10.44); Carbon Dioxide 17 mmol/L (23-31); Chloride 123 mmol/L (98-107); Estimated GFR-MDRD 27; Glucose 323 mg/dL (83-110); Sodium 152 mmol/L (136-145)
[2018-11-27] MEDS: Dextrose 5% in Water 1,000 ML IV PRN ×2 (01:27→09:00)
[2018-11-27 01:40] LABS: Anion Gap 16 mmol/L (10-20)
[2018-11-27] MEDS: Piperacillin/Tazobactam 2.25 GM in Sodium Chloride 0.9% 100 ML IVPB SCH ×4 (04:20→22:25)
[2018-11-27 06:19] LABS: Anion Gap 15 mmol/L (10-20); BUN (Urea Nitrogen) 37 mg/dL (9.8-20.1); Calc. Creatinine Clearance 28 mL/min (70-130); Calcium 8.1 mg/dL (7.8-10.44); Carbon Dioxide 21 mmol/L (23-31); Chloride 119 mmol/L (98-107); Estimated GFR-MDRD 27; Glucose 305 mg/dL (83-110); Potassium 3.8 mmol/L (3.5-5.1); Sodium 151 mmol/L (136-145)
[2018-11-27] MEDS: HumaLOG 300 UNITS/3 ML VIAL SC PRN ×4 (07:40→17:30)
[2018-11-27] MEDS ORDERED: DULoxetine 60 MG CAP PO SCH (09:00)
[2018-11-27] MEDS ORDERED: Non-Formulary Item 1 EACH (Prednisone [Prednisone] 10 MG) PO SCH (09:00)
[2018-11-27] MEDS ORDERED: Non-Formulary Item 1 EACH (Ferrous Sulfate [Ferrous Sulfate] 325 MG) PO SCH (09:00)
[2018-11-27] MEDS: Enoxaparin Sodium 30 MG/0.3 ML SYRINGE SC SCH (09:01)
[2018-11-27] MEDS: Polyethylene Glycol 3350 17 GM Packet PO SCH (09:02)
[2018-11-27] MEDS: Aspirin 300 MG Suppository PR SCH (09:02)
[2018-11-27] MEDS: DULoxetine 30 MG CAP PO SCH (09:03)
[2018-11-27] MEDS: Levothyroxine Sodium 25 MCG TAB PO SCH (09:03)
[2018-11-27] MEDS: Ferrous Sulfate 325 MG TAB PO SCH (09:03)
[2018-11-27] MEDS: predniSONE 5 MG TAB PO SCH (09:04)
[2018-11-27 10:06] LABS: Anion Gap 14 mmol/L (10-20); BUN (Urea Nitrogen) 34 mg/dL (9.8-20.1); Calc. Creatinine Clearance 30 mL/min (70-130); Calcium 8.1 mg/dL (7.8-10.44); Carbon Dioxide 21 mmol/L (23-31); Chloride 117 mmol/L (98-107); Estimated GFR-MDRD 30; Glucose 325 mg/dL (83-110); Potassium 3.4 mmol/L (3.5-5.1); Sodium 149 mmol/L (136-145)
--- NOTE | 2018-11-27 11:12 | PDOC.PN ---
- Subjective Encounter Start Date: 11/27/18 Encounter Start Time: 08:40 Subjective: lethargic, awakens to touch, says she is fine but doesn't communicate beyon -: -d that. Is seen freely moving right UE - Objective Resuscitation Status - Order Detail: 11/25/18 16:37 Resuscitation Status Routine Resuscitation Status: DNAR: NO Resuscitation Discussed with: Patient's daughter PATTI Reviewed: Yes Vital Signs & Weight: Vital Signs (12 hours) Temp Pulse Resp BP Pulse Ox 11/27/18 07:51 98.5 F 90 18 117/66 96 11/27/18 04:00 97.9 F 93 19 136/60 100 11/27/18 00:00 97.4 F L 86 20 108/50 L 99 Weight Weight 178 lb I&O: 11/26/18 11/27/18 11/28/18 06:59 06:59 06:59 Intake Total 1551 Output Total 175 Balance 1376 Result Diagrams: 11/26/18 05:08 11/27/18 09:30 Phys Exam - Physical Examination HEENT: PERRLA, sclera anicteric dry mucosa Neck: no JVD, supple Respiratory: no wheezing, no rales Cardiovascular: RRR, no significant murmur Gastrointestinal: soft, non-tender, positive bowel sounds Musculoskeletal: no edema, pulses present left hemiparesis Dx/Plan (1) Metabolic encephalopathy Code(s): G93.41 - METABOLIC ENCEPHALOPATHY Status: Acute (2) Severe dehydration Code(s): E86.0 - DEHYDRATION Status: Acute (3) Acute CVA (cerebrovascular accident) Code(s): I63.9 - CEREBRAL INFARCTION, UNSPECIFIED Status: Acute Comment: likely subacute large left cerebellar cva (4) VIOLA (acute kidney injury) Code(s): N17.9 - ACUTE KIDNEY FAILURE, UNSPECIFIED Status: Acute (5) CLL (chronic lymphocytic leukemia) Code(s): C91.90 - LYMPHOID LEUKEMIA, UNSPECIFIED NOT HAVING ACHIEVED REMISSION Status: Chronic (6) UTI (urinary tract infection) Status: Acute Qualifiers: Urinary tract infection type: acute cystitis Hematuria presence: without hematuria Qualified Code(s): N30.00 - Acute cystitis without hematuria (7) CAD (coronary artery disease) Code(s): I25.10 - ATHSCL HEART DISEASE OF [place] CORONARY ARTERY W/O ANG PCTRS Status: Chronic Qualifiers: Coronary Disease-Associated Artery/Lesion type: [place] artery [place] vs. transplanted heart: [place] heart Associated angina: without angina Qualified Code(s): I25.10 - Atherosclerotic heart disease of [place] coronary artery without angina pectoris (8) DM type 2 (diabetes mellitus, type 2) Status: Chronic Qualifiers: Diabetes mellitus care home insulin use: without care home use Diabetes mellitus complication status: with unspecified complications Qualified Code(s) : E11.8 - Type 2 diabetes mellitus with unspecified complications (9) Dementia Code(s): F03.90 - UNSPECIFIED DEMENTIA WITHOUT BEHAVIORAL DISTURBANCE Status: Chronic Qualifiers: Dementia type: Alzheimer's disease Alzheimer's disease onset: unspecified onset Dementia behavioral disturbance: without behavioral disturbance Qualified Code(s): G30.9 - Alzheimer's disease, unspecified; F02.80 - Dementia in other diseases classified elsewhere without behavioral disturbance (10) Dyslipidemia Code(s): E78.5 - HYPERLIPIDEMIA, UNSPECIFIED Status: Chronic - Plan sod is around 150's this am -: suggest change iv fluids to 1/2 NS, fingersticks are going upto 300 -: still has free water deficit, encourage po intake with asp precautions -: PT to mobilize as tolerated -: renal function is slowly getting better * . continue zosyn for uti, await full culture results for enterococci +e.coli. on asp rectal may switch to oral if she tolerates Home dose prednisone, aricept, namenda, cymbalta and synthroid. Prognosis guarded. Review of Systems - Medications/Allergies Allergies/Adverse Reactions: Allergies Allergy/AdvReac Type Severity Reaction Status Date / Time cephalexin [From Keflex] Allergy Verified 01/26/17 22:45 metformin Allergy Verified 01/26/17 22:45 Medications: Current Medications Albuterol/Ipratropium (Duoneb) 3 ml NEB PRN PRN PRN Reason: SOB &/or Wheezing Aspirin (Aspirin) 300 mg SD DAILY [facility] Last Admin: 11/27/18 09:02 Dose: 300 mg Dextrose/Water (Dextrose 50%) 25 gm SLOW IVP PRN PRN PRN Reason: Hypoglycemia Last Admin: 11/25/18 21:35 Dose: 25 gm Donepezil HCl (Aricept) 10 mg PO HS [facility] Duloxetine HCl (Cymbalta) 90 mg PO DAILY [facility] Last Admin: 11/27/18 09:03 Dose: 90 mg Enoxaparin Sodium (Lovenox) 30 mg SC 0900 [facility] Last Admin: 11/27/18 09:01 Dose: 30 mg Ferrous Sulfate (Feosol) 325 mg PO DAILY [facility] Last Admin: 11/27/18 09:03 Dose: 325 mg Glucagon (Glucagon) 1 mg IM PRN PRN PRN Reason: Hypoglycemia Piperacillin Sod/Tazobactam (Sod 2.25 gm/ Sodium Chloride) 100 mls @ 200 mls/ hr IVPB 0300,0900,1500,2100 [facility] Last Admin: 11/27/18 08:56 Dose: 100 mls Dextrose/Water (D5w) 1,000 mls @ 0 mls/hr IV .Q0M PRN PRN Reason: Hypoglycemia Last Admin: 11/27/18 09:00 Dose: 1,000 mls Dextrose/Sodium Chloride (D5 1/2 Ns) 1,000 mls @ 50 mls/hr IV .Q20H [facility] Last Admin: 11/26/18 21:23 Dose: 1,000 mls Insulin Human Lispro (Humalog) 0 units SC .MILD SLIDING SCALE PRN PRN Reason: Mild Correctional Scale Last Admin: 11/27/18 10:28 Dose: 5 unit Levothyroxine Sodium (Synthroid) 25 mcg PO DAILY [facility] Last Admin: 11/27/18 09:03 Dose: 25 mcg Memantine (Namenda) 10 mg PO BID [facility] Last Admin: 11/27/18 09:03 Dose: 10 mg Polyethylene Glycol (Miralax) 17 gm PO DAILY [facility] Last Admin: 11/27/18 09:02 Dose: 17 gm Prednisone (Prednisone) 10 mg PO DAILY [facility] Last Admin: 11/27/18 09:04 Dose: 10 mg Simvastatin (Zocor) 10 mg PO HS [facility] Sodium Chloride (Flush - Normal Saline) 10 ml IVF Q12HR [facility] Last Admin: 11/27/18 09:03 Dose: Not Given Sodium Chloride (Flush - Normal Saline) 10 ml IVF PRN PRN PRN Reason: Saline Flush
--- NOTE | 2018-11-27 12:43 | PRG ---
DATE OF SERVICE: 11/27/2018 SUBJECTIVE: An 88-year-old shelter resident with dementia and chronic debilitation, admitted due to acute mental status change. The patient was found to have acute kidney injury and hyponatremia necessitating Nephrology consult. The patient remained nonverbal. She has been afebrile since admission. She seems more awake today. OBJECTIVE: VITAL SIGNS: Temperature 98.6, pulse 84, respiratory rate 18, SpO2 of 95% on room air, blood pressure 110/56. GENERAL: Obese, elderly female, in no obvious distress. Afebrile. The patient is nonverbal. HEENT: Normocephalic, atraumatic. Pupils are reacting to light. Oral mucosa is dry. RESPIRATORY: Fair air entry bilaterally with some transmitted sounds. CARDIOVASCULAR: Irregular rhythm with normal heart sounds 1 and 2. GI: Obese, soft, nontender with normal bowel sounds. EXTREMITIES: Grossly normal looking with no edema, erythema, or cyanosis. NEUROLOGIC: Awake, but nonverbal. Managed to say a few words today. Moves all limbs, especially with stimulation. DIAGNOSTIC DATA: BMP at 9:30 a.m today showed sodium 149, potassium 3.4, chloride 117, CO2 of 21, BUN 34, creatinine 1.63, glucose 325, calcium 8.1. Urine osmolality performed on November 26, 2018 showed 478. Urine creatinine 79.6 and urine sodium 34. Urine culture grew E. coli and enterococcus. ASSESSMENT: 1. Symptomatic hypernatremia: Due to water deficit. Serum sodium is down to 149 today. 2. Acute encephalopathy, multifactorial in etiology from hypernatremia, dehydration, acute kidney injury, urinary tract infection, and possible acute cerebrovascular accident superimposed on baseline dementia. 3. Acute kidney injury due to dehydration. Creatinine is trending downwards. 4. Urinary tract infection. 5. Hypothyroidism. 6. Hypokalemia: Due to poor intake. 7. Presumed acute cerebrovascular accident. 8. Hypomagnesemia PLAN: 1. 5% Dextrose infusion has been decreased from 250 mL/hour to 125 mL/hour and 5 % dextrose in 1/2 saline started. We will decrease 5% dextose further to 50 mL/hour. 2. We will also replete potassium and magnesium 2. Continue insulin therapy for hyperglycemia. 3. Neuro checks to continue. 4. We will also continue to monitor renal function, electrolytes, and intake and output. Job ID: [id number] [facility]
[2018-11-27] MEDS: Dextrose 5 %-0.45 % NaCl 1,000 ML IV SCH (16:33)
[2018-11-27 17:23] LABS: Anion Gap 16 mmol/L (10-20); BUN (Urea Nitrogen) 31 mg/dL (9.8-20.1); Calc. Creatinine Clearance 33 mL/min (70-130); Calcium 8.1 mg/dL (7.8-10.44); Carbon Dioxide 17 mmol/L (23-31); Chloride 116 mmol/L (98-107); Estimated GFR-MDRD 33; Glucose 278 mg/dL (83-110); Potassium 3.8 mmol/L (3.5-5.1); Sodium 145 mmol/L (136-145)
[2018-11-27] MEDS ORDERED: Non-Formulary Item 1 EACH (Simvastatin [Zocor] 10 MG) PO SCH (21:00)
[2018-11-27] MEDS: Simvastatin 5 MG TAB PO SCH (22:26)
[2018-11-27] MEDS: Donepezil HCl 10 MG TAB PO SCH (22:26)
--- NOTE | 2018-11-28 00:19 | CON ---
DATE OF CONSULTATION: 11/27/2018 CONSULTING PHYSICIAN: Hospitalist Service. IMPRESSION: 1. Transient and improving encephalopathy secondary to dehydration and urinary tract infection. 2. Vascular dementia. PLAN: 1. Continue supportive measures. 2. The patient will be transferred back to the shelter at your discretion. HISTORY OF PRESENT ILLNESS: Ms. Arenas is an 88-year-old female who is a shelter resident. She had been fairly stable, but bedfast for last 15 years according to her daughter. Her daughter and went to [place] for 2 weeks and were unable to check on her. During this interval of time, she became progressively obtunded and was brought into the hospital for evaluation. She had a CT of the brain and CTA, which showed extensive white matter ischemic changes including the left cerebellum. No mass effect was associated with the cerebellar hypointensity. Sodium level is elevated at 162. BUN and creatinine were also elevated. Her white count and liver enzymes as well. She had evidence of UTI based on her urinalysis. She has been started on antibiotics 0and IV fluids. Overnight, she has perked up quite a bit. Her daughter says, she is nearly back to her baseline. PAST HISTORY: Hypothyroidism, hyperlipidemia, dementia. ALLERGIES: GLUCOPHAGE, KEFLEX. SOCIAL HISTORY: No tobacco or alcohol use. FAMILY HISTORY: Noncontributory. REVIEW OF SYSTEMS: Not obtainable secondary to her dementia. PHYSICAL EXAMINATION: GENERAL: She is a well-nourished elderly lady, sitting up in the bed, in no acute distress. VITAL SIGNS: Stable. She has been afebrile. HEENT: Pupils are equal and reactive. Conjunctiva clear. Oropharynx, mucous membranes are moist. NECK: Supple. No lymphadenopathy noted. EXTREMITIES: No cyanosis. NEUROLOGIC: She was alert and cooperative. She is quite hard of hearing. Her speech was fluent and clear. No facial asymmetries were noted. There was no tremor or dysmetria present. She had antigravity strength in both upper extremities. Gait is not testable. LABORATORY DATA: Imaging was reviewed. EKG shows a sinus rhythm. SUMMARY: Elderly lady with vascular dementia, who presented obtunded secondary to toxic metabolic factors. She is doing much better now. She has no evidence of an acute infarct. Continue current aspirin therapy and statin and she can be discharged back to shelter when stabilized. Job ID: [id number]
[2018-11-28] MEDS: Piperacillin/Tazobactam 2.25 GM in Sodium Chloride 0.9% 100 ML IVPB SCH ×2 (03:06→10:53)
[2018-11-28] MEDS: HumaLOG 300 UNITS/3 ML VIAL SC PRN ×3 (06:24→21:37)
[2018-11-28 09:29] LABS: Anion Gap 8 mmol/L (10-20); BUN (Urea Nitrogen) 18 mg/dL (9.8-20.1); Calc. Creatinine Clearance 45 mL/min (70-130); Carbon Dioxide 27 mmol/L (23-31); Chloride 111 mmol/L (98-107); Estimated GFR-MDRD 48; Glucose 182 mg/dL (83-110); Magnesium 1.5 mg/dL (1.6-2.6); Sodium 143 mmol/L (136-145)
[2018-11-28 09:35] LABS: Potassium 2.6 mmol/L (3.5-5.1)
[2018-11-28] MEDS ORDERED: Magnesium Sulfate 4 GM in Sodium Chloride 0.9% 250 ML 250 ML IVPB SCH ×3 (10:15→19:30)
[2018-11-28] MEDS ORDERED: Potassium Chloride 40 MEQ in Sodium Chloride 0.9% 250 ML 250 ML IVPB SCH (10:30)
[2018-11-28] MEDS: Enoxaparin Sodium 30 MG/0.3 ML SYRINGE SC SCH (10:51)
[2018-11-28] MEDS: Polyethylene Glycol 3350 17 GM Packet PO SCH (10:51)
[2018-11-28] MEDS: predniSONE 5 MG TAB PO SCH (10:52)
[2018-11-28] MEDS: DULoxetine 30 MG CAP PO SCH (10:52)
[2018-11-28] MEDS: Ferrous Sulfate 325 MG TAB PO SCH (10:53)
[2018-11-28] MEDS: Levothyroxine Sodium 25 MCG TAB PO SCH (10:53)
[2018-11-28] MEDS ORDERED: Aspirin 325 MG TAB PO SCH (12:00)
--- NOTE | 2018-11-28 12:15 | PRG ---
DATE OF SERVICE: 11/28/2018 SUBJECTIVE: The patient is seen and examined at bedside. Her mental function is gradually improving. There was no any unexpected events overnight. OBJECTIVE: VITAL SIGNS: Blood pressure is 132/60, pulse is 72, temperature is 97.9, respiratory rate is 17, O2 saturation is 97% on room air. HEENT: Sclerae nonicteric. Pupils are responding to light properly. Oral mucosa is moist, maybe because she just had drink orally. LUNGS: Clear. HEART: S1, S2, somewhat irregular. No S3. No S4. ABDOMEN: Soft, nontender, nondistended. EXTREMITIES: No clubbing, cyanosis, or edema. NEUROLOGICAL EXAMINATION: She started responding to all commands and she tries to follow my simple commands. LABORATORY DATA: Sodium of 143, potassium 2.6, chloride 111, CO2 of 27, BUN 18, creatinine 1.08, glucose 182, glycemia is ranging from 203 to 320, magnesium 1.5, calcium 8.0. No CBC today. IMPRESSION: 1. Acute encephalopathy secondary to hyponatremia and severe dehydration, acute cerebrovascular accident was ruled out. 2. Symptomatic hypernatremia. Her sodium is down to 143 today. 3. Acute kidney injury due to dehydration. Creatinine is trending downwards. 4. Hypokalemia. We will replace her with several doses of IV and p.o. potassium and magnesium. 5. Urinary tract infection with Escherichia coli and enterococcus. The patient is on Zosyn, which covers both organisms. 6. Hypothyroidism. On replacement. 7. Diabetes mellitus. PLAN: Plan is to continue her slow rehydration. The patient was seen by Speech therapist and her diet was modified. She will be continued on Zosyn. She will receive potassium and magnesium and we will start her on her regular dose of insulin, which is insulin Lantus 65 units once a day since her glycemia is ranging from 200 to 320. The case filler is looking for a different place for her to go up on the transfer. Job ID: [id number]
[2018-11-28] MEDS: Aspirin 325 MG TAB PO SCH (12:25)
[2018-11-28] MEDS: Aspirin 300 MG Suppository PR SCH (12:26)
[2018-11-28] MEDS: Dextrose 5 %-0.45 % NaCl 1,000 ML IV SCH (17:35)
[2018-11-28] MEDS: Simvastatin 5 MG TAB PO SCH (21:39)
[2018-11-28] MEDS: Donepezil HCl 10 MG TAB PO SCH (21:40)
[2018-11-29 06:31] LABS: Hemoglobin 12.2 g/dL (12.0-16.0); Lymphocytes 32 % (21-51); MDiff Complete? YES; Mean Corpuscular HGB CONC 32.2 g/dL (32.0-36.0); Mean Corpuscular Hemoglobin 33.5 pg (27.0-31.0); Mean Platelet Volume 10.3 fL (7.4-10.4); Neutrophil 68 % (42-75); Platelet Count 88 thou/uL (130-400); Platelet Morphology Comment Appears Decreased; RBC Distribution Width 12.5 % (11.5-14.5); RBC Morphology Normal; Red Blood Cell (RBC) Count 3.65 mill/uL (4.20-5.40); White Blood Cell (WBC) Count 8.4 thou/uL (4.8-10.8)
[2018-11-29 06:33] LABS: Albumin 2.8 g/dL (3.4-4.8); Anion Gap 9 mmol/L (10-20); BUN (Urea Nitrogen) 13 mg/dL (9.8-20.1); BUN/Creatinine Ratio 14.94; Calc. Creatinine Clearance 56 mL/min (70-130); Calcium 8.2 mg/dL (7.8-10.44); Carbon Dioxide 23 mmol/L (23-31); Chloride 118 mmol/L (98-107); Estimated GFR-MDRD 61; Glucose 139 mg/dL (83-110); Magnesium 2.6 mg/dL (1.6-2.6); Potassium 3.9 mmol/L (3.5-5.1); Sodium 146 mmol/L (136-145)
[2018-11-29 06:35] LABS: Phosphorus 1.7 mg/dL (2.3-4.7)
--- NOTE | 2018-11-29 07:16 | PRG ---
DATE OF SERVICE: 11/28/2018 SUBJECTIVE: An 88-year-old female admitted due to acute encephalopathy and weakness and was found to have hypernatremia and VIOLA as well as UTI. The patient is more awake and verbalizing spontaneously, though most of her speech is meaningless. She is beginning to tolerate some oral intake. No fever. No chest pain. No leg swelling. OBJECTIVE: VITAL SIGNS: Temperature 97.9, pulse 72, respiratory rate 17, SpO2 of 97 on room air, and blood pressure 132/60. GENERAL: Obese, elderly female, in no obvious distress. Afebrile. Anicteric. Oral mucosa is moist. HEENT: Normocephalic and atraumatic. Pupils are reacting to light. CARDIOVASCULAR: Regular rhythm and rate with normal heart sounds one and two. RESPIRATORY: Good air entry bilaterally with no obvious crackle. Some transmitted sounds were appreciated. GI: Abdomen is obese, soft, nontender, nondistended with normal bowel sounds. EXTREMITIES: Grossly normal looking with no edema, erythema, or cyanosis. The patient moves all extremities. NEUROLOGIC: Conscious and alert. The patient is verbalizing but most of them is meaningless. Cranial nerves 2 through 12 are grossly intact. The patient moves all extremities spontaneously. DIAGNOSTIC DATA: BMP shows sodium 143, potassium 2.6, chloride 111, CO2 27, BUN 18, creatinine 1.08, glucose 182, and calcium 8.0. Magnesium is 1.5. ASSESSMENT: Symptomatic severe hypernatremia due to dehydration and water deficits. Sodium is down to normal levels. The patient is beginning to tolerate oral intake. However, she stands at increase risk of having hypernatremia again due to her condition, dementia, chronic debilitation, and she cannot react to her thrust. Acute encephalopathy: Multifactorial from hypernatremia, dehydration, acute kidney injury, and urinary tract infection. Cerebrovascular accident is unlikely given neurology inputs. The patient also has baseline dementia, which got worse due to acute illness. The patient is talking now though mostly nonsense. Escherichia coli and enterococcus urinary tract infection. The patient is getting antibiotics as per primary attending. Acute kidney injury: Prerenal. Improved with IV fluids. Hypothyroidism, on replacement. Hypokalemia, persistent. Hypomagnesemia. PLAN: 1. We will replete serum potassium with potassium chloride both intravenously and orally due to severity. 2. We will also replete magnesium with magnesium sulfate, we will give 4 g today. 3. We will discontinue all IV fluids and encourage liberal oral intake. We will ask the nurses to keep water by the bedside so that the patient can drink to her thrust. 4. Neuro checks to continue. 5. We will continue to monitor renal function, electrolytes, intake and output, and address as needed. 6. We will also get repeat BMP at 1800 hours to monitor stability of electrolytes. Job ID: [id number]
[2018-11-29] MEDS ORDERED: Insulin Glargine 65 UNITS in Pre-Filled Syringe 1 EACH SC SCH (09:00)
[2018-11-29] MEDS: Levothyroxine Sodium 25 MCG TAB PO SCH (09:14)
[2018-11-29] MEDS: Ferrous Sulfate 325 MG TAB PO SCH (09:14)
[2018-11-29] MEDS: Aspirin 325 MG TAB PO SCH (09:15)
[2018-11-29] MEDS: DULoxetine 30 MG CAP PO SCH (09:16)
[2018-11-29] MEDS: predniSONE 5 MG TAB PO SCH (09:16)
[2018-11-29] MEDS: Polyethylene Glycol 3350 17 GM Packet PO SCH (09:16)
[2018-11-29] MEDS: Dextrose 5 %-0.45 % NaCl 1,000 ML IV SCH (09:18)
[2018-11-29] MEDS: Enoxaparin Sodium 30 MG/0.3 ML SYRINGE SC SCH (09:48)
[2018-11-29] MEDS ORDERED: Acetaminophen 500 MG TAB PO PRN (10:02)
[2018-11-29] MEDS ORDERED: Magnesium 2 GM/NS 0.9% 100 ML 2 GM in Premix Bag 1 BAG IVPB SCH (10:15)
--- NOTE | 2018-11-29 10:52 | PRG ---
DATE OF SERVICE: 11/29/2018 SUBJECTIVE: An 88-year-old being followed up for symptomatic hypernatremia associated with acute kidney injury and dehydration. Mental status is improved. The patient, however, is conversational, but confused. No fever or any discomfort. She is tolerating oral intake. OBJECTIVE: VITAL SIGNS: Temperature 98.1, pulse 73, respiratory rate 20, SpO2 of 98 on room air, and blood pressure 140/63. GENERAL: Obese, elderly female, in no distress. HEENT: Normocephalic and atraumatic. Pupils are reacting to light. CARDIOVASCULAR: Regular rhythm and rate with normal heart sounds one and two. RESPIRATORY: Fair air entry bilaterally with no obvious crackle or rhonchi or use of accessory muscles. GI: Abdomen is obese, soft, nontender, nondistended with normal bowel sounds. EXTREMITIES: Grossly normal looking, atraumatic with no edema or erythema. NEUROLOGIC: Conscious and alert. The patient is verbalizing, but she is only oriented to person, responds to call, and answers few questions correctly. Most of speech is nonsensical. Cranial nerves 2 through 12 are grossly intact. Moves all extremities. DIAGNOSTIC DATA: Renal function panel today showed sodium 146, potassium 3.9, chloride 119, CO2 of 23, BUN 13, creatinine 0.87, glucose 139, calcium 8.2, phosphorus 1.7, magnesium 2.6, and albumin 2.8. CBC today showed WBC count of 8.4, hemoglobin of 12.2, MCV of 104, and platelets of 88. ASSESSMENT: 1. Symptomatic severe hypernatremia: Due to dehydration and free water deficit. Improved. Sodium today is 149. It is creeping up from a petra of 143. The patient is tolerating orally now, and mentation has improved. She is awake and verbalizing, though most of her speech is confused. This is said to be her baseline. 2. Acute encephalopathy: Multifactorial from hypernatremia, dehydration, acute kidney injury, and urinary tract infection. Improved. The patient seems to be at baseline. 3. Acute kidney injury: Prerenal due to dehydration. Resolved. Creatinine today is 0.83. 4. Hypokalemia: Repleted. 5. Hypomagnesemia: Repleted. PLAN: 1. [place] free water intake recommended. Discussed with nursing staff to provide the patient with free water through the mouth at intervals. 2. Monitor electrolytes and renal function and correct as needed. We will sign off at this time. Job ID: [id number]
[2018-11-29] MEDS: HumaLOG 300 UNITS/3 ML VIAL SC PRN ×3 (12:33→23:00)
--- NOTE | 2018-11-29 13:28 | PRG ---
DATE OF SERVICE: 11/29/2018 SUBJECTIVE: The patient is seen and examined at the bedside. There is not much communication with this lady, although she tries to follow my commands. She follows short most of the time. She is trying to drink water from the cup during my visit. OBJECTIVE: VITAL SIGNS: Blood pressure is 132/63, pulse is 66, respiratory rate is 18, O2 saturation is 97 on room air, and temperature is 97.7. HEENT: Her sclerae are nonicteric. LUNGS: Clear. HEART: S1 and S2, somewhat irregular. No S3, no S4. ABDOMEN: Soft, nontender. EXTREMITIES: No clubbing, cyanosis, or edema. NEUROLOGICAL: She spontaneously moves her all four extremities. There is no any motor deficits. She does not follow my commands. LABORATORY DATA: White count of 8.4, hemoglobin of 12.2, hematocrit 38.0, platelet count is 88,000. Sodium of 146, potassium of 3.9, chloride 118, CO2 of 23, BUN 13, creatinine 0.87, glucose is ranging from 157 to 334, magnesium is 2.6, and albumin 2.8. Microbiology, no new findings. Cardiogram showed LVEF estimated at 50% to 55%, diastolic function could not be assessed. There was mild mitral regurgitation and mild tricuspid regurgitation. It was overall technically difficult study with poor endocardial definition. 1. Acute encephalopathy secondary to hyponatremia and severe dehydration. Acute cerebrovascular accident was ruled out. 2. Vascular dementia. 3. Symptomatic hypernatremia. 4. Acute kidney injury due to dehydration improved. 5. Hypokalemia, improved. 6. Urinary tract infection with Escherichia coli and Enterococcus. The patient switched to ampicillin. 7. Hypothyroidism on replacement. 8. Diabetes mellitus, labile. PLAN: Plan is to stop her IV fluids, just give her oral fluids. Continue ampicillin. Continue replacing her electrolytes as needed and better control of her diabetes. Job ID: [id number]
[2018-11-29] MEDS: Donepezil HCl 10 MG TAB PO SCH (21:35)
[2018-11-29] MEDS: Simvastatin 5 MG TAB PO SCH (21:35)
[2018-11-30 06:21] LABS: Band 8 % (5-11); Eosinophils 2 % (0-10); Hemoglobin 11.8 g/dL (12.0-16.0); Lymphocytes 59 % (21-51); MDiff Complete? YES; Macrocytosis SLIGHT = 6-15 cells (100X) (0-5/hpf); Mean Corpuscular HGB CONC 32.5 g/dL (32.0-36.0); Mean Corpuscular Hemoglobin 33.9 pg (27.0-31.0); Mean Platelet Volume 10.1 fL (7.4-10.4); Monocytes 7 % (0-10); Neutrophil 24 % (42-75); Platelet Count 82 thou/uL (130-400); Platelet Morphology Comment Appears Decreased; RBC Distribution Width 12.8 % (11.5-14.5); Red Blood Cell (RBC) Count 3.48 mill/uL (4.20-5.40); White Blood Cell (WBC) Count 7.5 thou/uL (4.8-10.8)
[2018-11-30 06:23] LABS: Anion Gap 9 mmol/L (10-20); BUN (Urea Nitrogen) 16 mg/dL (9.8-20.1); Calc. Creatinine Clearance 63 mL/min (70-130); Calcium 8.1 mg/dL (7.8-10.44); Carbon Dioxide 23 mmol/L (23-31); Chloride 116 mmol/L (98-107); Estimated GFR-MDRD 71; Glucose 63 mg/dL (83-110); Potassium 3.6 mmol/L (3.5-5.1); Sodium 144 mmol/L (136-145)
[2018-11-30] MEDS ORDERED: Insulin Glargine 70 UNITS in Pre-Filled Syringe 1 EACH SC SCH (09:00)
[2018-11-30] MEDS: Enoxaparin Sodium 30 MG/0.3 ML SYRINGE SC SCH (10:17)
[2018-11-30] MEDS: DULoxetine 30 MG CAP PO SCH (10:21)
[2018-11-30] MEDS: Levothyroxine Sodium 25 MCG TAB PO SCH (10:21)
[2018-11-30] MEDS: Aspirin 325 MG TAB PO SCH (10:21)
[2018-11-30] MEDS: Ferrous Sulfate 325 MG TAB PO SCH (10:22)
[2018-11-30] MEDS: predniSONE 5 MG TAB PO SCH (10:22)
[2018-11-30] MEDS: Polyethylene Glycol 3350 17 GM Packet PO SCH (10:22)
[2018-11-30] MEDS ORDERED: Insulin Glargine 35 UNITS in Pre-Filled Syringe 1 EACH SC SCH (10:45)
--- NOTE | 2018-11-30 17:43 | PRG ---
DATE OF SERVICE: 11/30/2018 SUBJECTIVE: The patient is quite drowsy this morning. She is difficult to arouse. She did not eat any breakfast. OBJECTIVE: VITAL SIGNS: Blood pressure is 140/64, pulse is 59, temperature is 97.5. Her maximal temperature is 99.3, respirations 16, O2 saturation is 99% on room air. LUNGS: Breath sounds diminished at both bases. HEART: S1, S2, somewhat irregular. No S3. No S4. ABDOMEN: Soft and nondistended. EXTREMITIES: No clubbing, cyanosis, or edema. NEUROLOGICAL: Postponed since she is drowsy and very difficult to arouse. LABORATORY DATA: White count is 7.5, hemoglobin 11.8, hematocrit 36.3, platelet count is 82,000. Sodium of 144, potassium 3.6, chloride 116, BUN 16, creatinine 0.77, glycemia is ranging from 93-234, but her glucose was down to 63 on her BMP. Her blood culture 1 out of 2 came back positive for presumptive corynebacterium. It is most likely related to contamination. IMPRESSION: 1. Acute encephalopathy secondary to hypernatremia and severe dehydration. An acute cerebrovascular accident was ruled out. Apparently, she improved and now she is in quite comatose state of unclear etiology. If she does not wake up, we will have some imaging done on her brain with CT. 2. Vascular dementia. 3. Symptomatic hypernatremia improved with appropriate fluid supplementation. 4. Acute kidney injury due to dehydration, improved. 5. Hypokalemia, improved. 6. Urine tract infection with Escherichia coli enterococcus. The patient is switched to ampicillin. We will continue that antibiotic. 7. Hypothyroidism, on replacement. 8. Diabetes mellitus. Since the patient is not eating much today, I am going to stop her long-acting insulin. 9. Thrombocytopenia most likely related to infection. I am going to stop aspirin and Lovenox which was on hold because of thrombocytopenia, which was getting worse. If she does not wake up, we will start her on IV fluids again and recheck her metabolic panel. Job ID: [id number]
[2018-11-30] MEDS: Donepezil HCl 10 MG TAB PO SCH (21:53)
[2018-11-30] MEDS: Simvastatin 5 MG TAB PO SCH (21:53)
[2018-11-30] MEDS: HumaLOG 300 UNITS/3 ML VIAL SC PRN (22:00)
[2018-12-01] MEDS: Levothyroxine Sodium 25 MCG TAB PO SCH (06:33)
[2018-12-01] MEDS ORDERED: Insulin Glargine 35 UNITS in Pre-Filled Syringe 1 EACH SC SCH (09:00)
[2018-12-01] MEDS: predniSONE 5 MG TAB PO SCH (09:28)
[2018-12-01] MEDS: Ferrous Sulfate 325 MG TAB PO SCH (09:29)
[2018-12-01] MEDS: Polyethylene Glycol 3350 17 GM Packet PO SCH (09:29)
[2018-12-01] MEDS: DULoxetine 30 MG CAP PO SCH (09:43)
[2018-12-01] MEDS: HumaLOG 300 UNITS/3 ML VIAL SC PRN (13:39)
--- NOTE | 2018-12-01 16:56 | PRG ---
DATE OF SERVICE: 12/01/2018 SUBJECTIVE: The patient was seen and examined at the bedside. She is sleeping, but easily arousable. There is not much good contact with this lady. She does not follow my commands. OBJECTIVE: VITAL SIGNS: Blood pressure is 134/60, pulse is 67, temperature is 97.4, respirations 18, and O2 saturation is 93% on room air. LUNGS: Clear. HEART: S1 and S2, somewhat irregular. No S3. No S4. ABDOMEN: Soft. Nondistended. EXTREMITIES: No clubbing, cyanosis, or edema. NEUROLOGIC: As I mentioned above, she still sleeps quite a bit, but she wakes up and she eats her meal. She ate her breakfast 75%. She is able to move her all 4 extremities. LABORATORY DATA: Glycemia is ranging from 105 to 278. Microbiology, nothing new. IMPRESSION AND PLAN: 1. Acute encephalopathy secondary to hypernatremia and severe dehydration and acute cerebrovascular accident was ruled out. 2. Vascular dementia. 3. Symptomatic hypernatremia, improved with appropriate fluid supplementation. 4. Acute kidney injury due to dehydration, improved. 5. Hypokalemia, improved. 6. Urinary tract infection with Escherichia coli and Enterococcus. The patient is on ampicillin. We will continue antibiotic. 7. Hypothyroidism, on replacement. 8. Diabetes mellitus. Since her eating is still erratic, she is only on a sliding scale insulin. 9. Thrombocytopenia, most likely related to infection. Her aspirin was stopped and Lovenox was stopped to prevent further deterioration of her thrombocytopenia. 10. The pillowcase cleaner is looking for a new place for her, she is not going to return to the previous place she came from. Job ID: [id number]
[2018-12-01] MEDS: Simvastatin 5 MG TAB PO SCH (21:00)
[2018-12-01] MEDS: Donepezil HCl 10 MG TAB PO SCH (21:00)
[2018-12-02 06:04] LABS: #Basophils 0.1 thou/uL (0.0-0.2); #Eosinphils 0.2 thou/uL (0.0-0.7); #Lymphocytes 5.8 thou/uL (1.20-3.40); #Monocytes 0.7 thou/uL (0.11-0.59); #Neutrophils 5.1 thou/uL (1.40-6.50); %Basophils 0.6 % (0.0-1.0); %Eosinophils 2.1 % (0.0-10.0); %Lymphocytes 48.9 % (21.0-51.0); %Monocytes 5.5 % (0.0-10.0); %Neutrophils 42.9 % (42.0-75.0); Hemoglobin 12.3 g/dL (12.0-16.0); Mean Corpuscular HGB CONC 32.1 g/dL (32.0-36.0); Mean Corpuscular Hemoglobin 33.5 pg (27.0-31.0); Mean Platelet Volume 9.9 fL (7.4-10.4); Platelet Count 101 thou/uL (130-400); RBC Distribution Width 12.9 % (11.5-14.5); Red Blood Cell (RBC) Count 3.66 mill/uL (4.20-5.40); White Blood Cell (WBC) Count 11.9 thou/uL (4.8-10.8)
[2018-12-02 06:11] LABS: Anion Gap 11 mmol/L (10-20); BUN (Urea Nitrogen) 12 mg/dL (9.8-20.1); Calc. Creatinine Clearance 62 mL/min (70-130); Calcium 8.3 mg/dL (7.8-10.44); Carbon Dioxide 24 mmol/L (23-31); Chloride 108 mmol/L (98-107); Estimated GFR-MDRD 70; Glucose 147 mg/dL (83-110); Sodium 139 mmol/L (136-145)
[2018-12-02] MEDS: Levothyroxine Sodium 25 MCG TAB PO SCH (06:40)
[2018-12-02 07:52] VITALS: TEMP 97.9
[2018-12-02] MEDS: Polyethylene Glycol 3350 17 GM Packet PO SCH (09:48)
[2018-12-02] MEDS: Ferrous Sulfate 325 MG TAB PO SCH (09:48)
[2018-12-02] MEDS: predniSONE 5 MG TAB PO SCH (09:48)
[2018-12-02] MEDS: DULoxetine 30 MG CAP PO SCH (09:48)
[2018-12-02 11:40] VITALS: BP 129/57
[2018-12-02] MEDS: HumaLOG 300 UNITS/3 ML VIAL SC PRN (12:46)
--- NOTE | 2018-12-03 02:11 | DIS ---
DATE OF ADMISSION: 11/25/2018 DATE OF DISCHARGE: 12/02/2018 FINAL DIAGNOSES AT THE TIME OF DISCHARGE: 1. Acute encephalopathy, secondary to hypernatremia and severe dehydration. 2. Vascular dementia. 3. Symptomatic hypernatremia. 4. Acute kidney injury due to dehydration, improved. 5. Hypokalemia, resolved. 6. Urinary tract infection with Escherichia coli and enterococcus. 7. Hypothyroidism. 8. Diabetes mellitus. 9. Thrombocytopenia. CONSULTANTS: Dr. Truong, Neurology Service. Dr. Calderón for Nephrology Service. HOSPITAL COURSE: The patient is an 88-year-old female with history of dementia, debility, bed-bound status, chronic leukemia, and history of paroxysmal atrial fibrillation, who was not receiving any anticoagulation due to fear of increased risk of falls, who developed abrupt onset of altered mental status, was taken to the emergency room by EMS for further evaluation. In the emergency room, she was minimally responsive. CT scan area in the left cerebellar part of the brain. At the time of emergency room evaluation, her white count was up to 20,000, hemoglobin was 17.4. She was very dehydrated. Platelets were 129. ABGs showed pCO2 of 35, pH was 7.42, and pO2 was 53. Initial blood glucose was 53. Lactic acid 2.5. Sodium 158, potassium 3.5, chloride 124, CO2 of 24, BUN 50, creatinine 1.77. Urinalysis showed greater than 50 wbc's, 7 to 10 rbc's, large amount of leukocyte esterases, large amount of blood, 215 of glucose, and 4+ bacteria. CT angiogram showed no hemodynamically significant stenosis or occlusion or aneurysmal dilatation. The patient got admitted to the hospital with possible acute CVA. She was seen by Dr. Truong, who felt that she had vascular dementia and her encephalopathy was secondary to dehydration and urinary tract infection. She was seen by Dr. Calderón for nephrology evaluation. He recommended to continue IV fluids and supplement her electrolytes deficiencies. She gradually improved to the point that she was able to say a few words, but her mental baseline is showing significant dementia. Her microbiology came back positive for the E. coli and enterococcus faecalis in her urine, so she was treated with antibiotics from the beginning and she was switched to ampicillin which covered both pathogens. She is eating from 50% to 75% of her food. She is quite awake during the daytime, although she still naps. She is rehydrated. Her potassium is up to 4.0. Her kidney function is back to normal. Her glycemia was up and down since she was not really eating much. We tried her on her regular 65 units of insulin Lantus, but she became hypoglycemic and we decided to use just 15 units of long-acting once a day along with sliding scale, so she is discharged to a new place, which is called [facility] that is the longterm and she will stay on diabetic diet, activities as tolerated. She is basically bed ridden. MEDICATIONS: At the time of discharge, 1. Ampicillin 500 mg four times a day for additional 4 days. 2. Aricept 10 mg at bedtime. 3. Cymbalta 90 mg once a day. 4. Ferrous sulfate 325 mg once a day. 5. DuoNebs q.i.d. p.r.n. as needed. 6. Levothyroxine 25 mcg once a day. 7. Namenda 10 mg twice a day. 8. MiraLax 17 g once a day. 9. Prednisone 10 mg once a day. 10. Simvastatin 10 mg at bedtime. 11. zinc, copper, and selenium one a day. 12. Tylenol p.r.n. as needed. 13. Aspirin 81 mg once a day. 14. Ascorbic acid 500 mg twice a day. 15. Vitamin D3 6000 units once a day. 16. 15 units of insulin glargine which is Lantus once a day, sliding scale. 17. Accu-Cheks a.c. and at bedtime. 18. Loperamide p.r.n. 19. Magnesium p.r.n. 20. Methotrexate 5 mg every seven days. 21. Niacin 100 mg twice a day. 22. Nitroglycerin p.r.n. 23. Zofran p.r.n. FOLLOWUP: The patient needs to follow up with primary care physician in 1 week and she needs to have BMP done in 1 week. The patient was seen and examined before she is discharged. TIME SPENT: Discharge time is more than 30 minutes. Job ID: [id number]
== END 2018-12-02 15:30 | DRG 640 ==
LOC: ERS 13:30 → 2SE 15:31
PROVIDERS: ADMIT Internal Medicine; ATTEND Internal Medicine
DX: E86.0 Dehydration (principal); G93.41 Metabolic encephalopathy; N17.9 Acute kidney failure, unspecified; N39.0 Urinary tract infection, site not specified; C91.90 Lymphoid leukemia, unspecified not having achieved remission; G93.49 Other encephalopathy; Z66 Do not resuscitate; E87.0 Hyperosmolality and hypernatremia; Z74.01 Bed confinement status; I48.0 Paroxysmal atrial fibrillation; G30.9 Alzheimer's disease, unspecified; F02.80 Dementia in other diseases classified elsewhere, unspecified severity, without behavioral disturbance, psychotic disturbance, mood disturbance, and anxiety; M81.0 Age-related osteoporosis without current pathological fracture; E78.5 Hyperlipidemia, unspecified; K21.9 Gastro-esophageal reflux disease without esophagitis; I25.10 Atherosclerotic heart disease of native coronary artery without angina pectoris; M19.90 Unspecified osteoarthritis, unspecified site; E78.1 Pure hyperglyceridemia; E03.9 Hypothyroidism, unspecified; B96.20 Unspecified Escherichia coli [E. coli] as the cause of diseases classified elsewhere; E87.6 Hypokalemia; E83.42 Hypomagnesemia; B95.2 Enterococcus as the cause of diseases classified elsewhere; E11.649 Type 2 diabetes mellitus with hypoglycemia without coma; D69.6 Thrombocytopenia, unspecified; Z90.49 Acquired absence of other specified parts of digestive tract; Z90.710 Acquired absence of both cervix and uterus; Z88.1 Allergy status to other antibiotic agents; Z88.8 Allergy status to other drugs, medicaments and biological substances; Z79.52 Long term (current) use of systemic steroids
CPT/HCPCS: 36415; 36416; 51701; 70450; 70496; 70498; 71045; 80048; 80053; 80069; 81003; 81015; 82330; 82570; 82803; 82947; 83605; 83690; 83735; 83930; 83935; 84300; 84443; 85025; 85610; 85730; 86850; 86900; 86901; 87040; 87077; 87086; 87186; 93005; 93306; 96361; 96365; 96374; A4353; J0290; J1650; J1825; J2543; J3475; J3480; J7050; J7512; Q9966